=== PATIENT | male | born 1980 | race Caucasian/White ===

== ENCOUNTER 2024-10-28 17:37 | Inpatient (IN) | payer SELFPAY ==
[2024-10-28] VITALS (13 sets, daily range): BP systolic 134–161; BP diastolic 64–87; PULSE 108; RESP 20–24; TEMP 38–38.4; O2SAT 97–100
--- NOTE | ~2024-10-28 | XR_ITS ---
EXAMINATION: XR chest 2V 10/28/2024 19:31 INDICATION: Covid. Shortness of breath. Swelling. PROCEDURE: 2 view chest COMPARISON: 08/26/2014 FINDINGS: The lungs are clear. The cardiomediastinal silhouette is within normal limits. There are no pleural effusions. There is no pneumothorax suspected. IMPRESSION: 1: NO ACUTE CARDIOPULMONARY DISEASE. Reviewed, dictated and finalized at location O.
--- NOTE | ~2024-10-28 | CT_ITS ---
EXAMINATION: CT LE LT w con DATE: 10/28/2024 21:11 INDICATION: Left lower limb edema and erythema. TECHNIQUE: Computed tomography (CT) of the left lower limb was performed with 100 mL Omnipaque 350 intravenous contrast. Automated exposure control and iterative reconstruction technique were employed. The dose-length product was 2254.57 mGy-cm. COMPARISON: None FINDINGS: There is subcutaneous edema and skin thickening in the left lower limb. Alignment is normal. No fracture. No evidence of osteomyelitis. There is moderate left hip osteoarthritis. There is mild left knee osteoarthritis. No knee joint effusion. IMPRESSION: 1. Subcutaneous edema and skin thickening in the left lower limb. No abscess. Reviewed, dictated and finalized at location E.
--- NOTE | ~2024-10-28 | US_ITS ---
EXAMINATION:US venous doppler LE LT INDICATION:Left lower extremity swelling. TECHNIQUE: Multiple grayscale, color flow and Doppler images of the left lower extremity deep venous systems were obtained and reviewed. COMPARISON:No prior studies for comparison. FINDINGS: The common femoral, superficial femoral and popliteal veins demonstrate normal respiratory variation, augmentation and compressibility. Color flow is also seen within the posterior tibial, peroneal, greater saphenous and profunda veins. IMPRESSION: 1: No lower extremity deep venous thrombosis. Reviewed, dictated and finalized at location O.
--- NOTE | 2024-10-28 18:27 | ED.EXTPRO ---
HPI - Extremity Problem General Chief complaint: Extremity Problem,Nontraumatic <KAVITHA Crocker Last Filed: 10/28/24 18:42> Stated complaint: left swelling since Monday <KAVITHA Crocker Last Filed: 10/28/24 18:42> Time Seen by Provider: 10/28/24 18:27 <KAVITHA Crocker Last Filed: 10/28/24 18:42> Focused HPI: Patient is a 44 y/o male who presents to the ED with c/o LLE redness/swelling. Patient reports he works at [employer] and YANNI has been going around for the past couple of weeks. He began feeling ill on Monday with body aches, chills, cough, fever. States he laid in bed for 2 days due to not feeling well. He had been having issues with swelling in his legs recently, but since he has been ill, he has since developed worsening diffuse redness, swelling, blistering, weeping to L lower leg. Redness extending up medial leg. Patient denies hx of CHF, DVT. Does report having increased SOB, worse with exertion/laying flat. GENERAL: Ill-appearing, morbidly obese with BMI of 51.4, and in no acute distress. HEAD: Normocephalic, atraumatic. CHEST: Clear to auscultation. ?No respiratory distress. HEART: Tachycardic with regular rhythm.? MSK: Diffuse swelling throughout L lower leg, wrapped with towel, diffuse redness/yellow purulent weeping. NEURO: ?Alert and oriented x3. Patient screened in triage and initial orders placed.? ?Additional care and disposition to be based upon?diagnostic testing and treatment. <KAVITHA Crocker Last Filed: 10/28/24 18:42> Source: patient <KAVITHA Crocker Last Filed: 10/28/24 18:42> Mode of arrival: ambulatory <KAVITHA Crocker Last Filed: 10/28/24 18:42> Limitations: no limitations <KAVITHA Crocker Last Filed: 10/28/24 18:42> Related Data Allergies/Adverse reactions: Allergies Allergy/AdvReac Type Severity Reaction Status Date / Time No Known Allergies Allergy Unverified 01/02/24 10:28 <Flavia Osorio PA-C - Last Filed: 10/28/24 18:42> Review of Systems Review of Systems: All systems reviewed & are unremarkable except as noted in HPI and below <KAVITHA Mg Last Filed: 10/29/24 02:50> Exam Narrative: GENERAL: Well-appearing, obese, and in no acute distress. HEAD: Normocephalic, atraumatic. EYES: EOMI. CHEST: Clear to auscultation. No respiratory distress. No wheezes rales or rhonchi HEART: Regular rate and rhythm. No murmur heard. Normal peripheral pulses. EXTREMITIES: Normal range of motion. Edema with overlying erythema to the foot and into the lower leg with lymphangitic streaking into the thigh. Blistering noted on the lower leg laterally. Normal DP pulses SKIN: Warm, dry, no rash. NEURO: No focal deficits. Alert and oriented x3. PSYCH: Normal mood and affect <KAVITHA Mg Last Filed: 10/29/24 02:50> Course Course Emergency Course: patient updated on workup and need for admission <KAVITHA Mg Last Filed: 10/29/24 02:50> Consultations Consultation #1: Spoke with hospitalist about patient and workup who accepts admission <KAVITHA Mg Last Filed: 10/29/24 02:50> Date: 10/29/24 <KAVITHA Mg Last Filed: 10/29/24 02:50> Vital Signs Vital signs: Vital Signs Temperature 101.1 F H 10/28/24 17:52 Pulse Rate 108 H 10/28/24 17:52 Respiratory Rate 20 10/28/24 17:52 Blood Pressure 136/67 10/28/24 17:52 Pulse Oximetry 100 10/28/24 17:52 Oxygen Delivery Room Air 10/28/24 17:52 Temperature 98.2 F 10/29/24 01:12 Pulse Rate 108 H 10/28/24 19:32 Respiratory Rate 24 H 10/28/24 19:32 Blood Pressure 136/78 10/29/24 02:31 Pulse Oximetry 100 10/29/24 02:30 Oxygen Delivery Room Air 10/28/24 17:52 <Flavia Osorio PA-C - Last Filed: 10/28/24 18:42> Vital Signs Temperature 101.1 F H 10/28/24 17:52 Pulse Rate 108 H 10/28/24 17:52 Respiratory Rate 20 10/28/24 17:52 Blood Pressure 136/67 10/28/24 17:52 Pulse Oximetry 100 10/28/24 17:52 Oxygen Delivery Room Air 10/28/24 17:52 Temperature 98.2 F 10/29/24 01:12 Pulse Rate 108 H 10/28/24 19:32 Respiratory Rate 24 H 10/28/24 19:32 Blood Pressure 136/78 10/29/24 02:31 Pulse Oximetry 100 10/29/24 02:30 Oxygen Delivery Room Air 10/28/24 17:52 <KAVITHA Mg Last Filed: 10/29/24 02:50> MDM - Extremity (Nontraumatic) MDM Narrative Medical decision making narrative: MSE by ERI in triage. <KAVITHA Crocker Last Filed: 10/28/24 18:42> MSE by ERI in triage. Patient presents emergency department for redness, swelling to the left lower extremity. Patient febrile and tachycardic upon arrival. Given antipyretic with relief. Cbc without leukocytosis. CRP is elevated at 30.3. Lactic acid is not elevated. Influenza, RSV screens are negative. Left lower extremity venous Doppler without evidence of DVT. CT of the lower extremity without evidence of abscess, gas, or osteomyelitis. patient updated on workup and need for admission. Spoke with hospitalist about patient and workup who accepts admission <KAVITHA Mg Last Filed: 10/29/24 02:50> Differential Diagnosis Differential diagnosis: Likely cellulitis, deep vein thrombosis of lower extremity and other (abscess) <KAVITHA Mg Last Filed: 10/29/24 02:50> Lab Data Attestation: I reviewed the patient's lab results. <KAVITHA Mg Last Filed: 10/29/24 02:50> Result diagrams: 10/28/24 19:51 10/28/24 19:51 <Flavia Osorio PA-C - Last Filed: 10/28/24 18:42> Labs: Lab Results 10/28/24 Range/Units 19:51 WBC 10.0 (4.5-10.0) K/mm3 RBC 4.45 L (4.6-6.20) M/mm3 Hgb 13.7 L (14.0-18.0) g/dL Hct 40.3 L (42.0-52.0) % MCV 90.6 (80-100) fl MCH 30.8 (26-34) pg MCHC 34.0 (32-36) g/dl RDW 13.0 (11.5-14.5) % Plt Count 136 L (150-375) k/mm3 MPV 12.5 H (7.4-10.4) fl Immature Gran % (Auto) 0.5 (0-0.5) % Neut % (Auto) 88.6 H (45.5-73.1) % Lymph % (Auto) 6.2 L (18.3-44.2) % [place] % (Auto) 4.4 (2.6-8.5) % Eos % (Auto) 0.1 (0-4.4) % Baso % (Auto) 0.2 (0.2-1.2) % Lymph # (Auto) 0.62 L (0.9-3.2) K/mm3 [place] # (Auto) 0.4 (0.1-0.6) K/mm3 Eos # (Auto) 0.0 (0-0.3) K/mm3 Baso # (Auto) 0.0 (0.0-0.1) K/mm3 Abs Immat Gran (auto) 0.05 H (0.00-0.031) K/mm3 Absolute Neuts (auto) 8.9 H (1.3-6.7) K/mm3 Absolute Nucleated RBC 0.000 (0.0-0.012) K/mm3 Nucleated RBC % 0.0 (0.0-0.2) % PT 14.6 (11.1-14.7) Seconds INR 1.1 APTT 35.1 (22.3-36.8) Seconds Sodium 135 L (137-145) mmol/L Potassium 3.5 (3.4-5.0) mmol/L Chloride 100 (98-107) mmol/L Carbon Dioxide 23 (22-30) mmol/L Anion Gap 12 (4-12) mmol/L BUN 15 (9-20) mg/dL Creatinine 0.91 (0.7-1.3) mg/dL Estim Creat Clear Calc 128 ml/min Estimated GFR > 60 (59 - ) Glucose 99 (65-110) mg/dL Lactic Acid 1.3 (0.7-2.0) mmol/L Calcium 8.7 (8.4-10.2) mg/dL Total Bilirubin 1.3 (0.2-1.3) mg/dL AST 27 (17-59) U/L ALT 26 (6-50) U/L Alkaline Phosphatase 95 (38-126) U/L Troponin I < 0.012 (0.000-0.034) ng/mL C-Reactive Protein 30.3 H (<1.0) mg/dL NT-Pro-B Natriuret Pep < 20 (19.9-100) pg/mL Total Protein 8.1 (6.3-8.2) g/dL Albumin 4.2 (3.5-5.1) g/dL Influenza A (RT-PCR) Negative (Negative) Influenza B (RT-PCR) Negative (Negative) RSV (RT-PCR) Negative (Negative) SARS-CoV-2 RNA (RT-PCR) Negative (Negative) <Flavia Osorio PA-C - Last Filed: 10/28/24 18:42> Lab Results 10/28/24 Range/Units 19:51 WBC 10.0 (4.5-10.0) K/mm3 RBC 4.45 L (4.6-6.20) M/mm3 Hgb 13.7 L (14.0-18.0) g/dL Hct 40.3 L (42.0-52.0) % MCV 90.6 (80-100) fl MCH 30.8 (26-34) pg MCHC 34.0 (32-36) g/dl RDW 13.0 (11.5-14.5) % Plt Count 136 L (150-375) k/mm3 MPV 12.5 H (7.4-10.4) fl Immature Gran % (Auto) 0.5 (0-0.5) % Neut % (Auto) 88.6 H (45.5-73.1) % Lymph % (Auto) 6.2 L (18.3-44.2) % [place] % (Auto) 4.4 (2.6-8.5) % Eos % (Auto) 0.1 (0-4.4) % Baso % (Auto) 0.2 (0.2-1.2) % Lymph # (Auto) 0.62 L (0.9-3.2) K/mm3 [place] # (Auto) 0.4 (0.1-0.6) K/mm3 Eos # (Auto) 0.0 (0-0.3) K/mm3 Baso # (Auto) 0.0 (0.0-0.1) K/mm3 Abs Immat Gran (auto) 0.05 H (0.00-0.031) K/mm3 Absolute Neuts (auto) 8.9 H (1.3-6.7) K/mm3 Absolute Nucleated RBC 0.000 (0.0-0.012) K/mm3 Nucleated RBC % 0.0 (0.0-0.2) % PT 14.6 (11.1-14.7) Seconds INR 1.1 APTT 35.1 (22.3-36.8) Seconds Sodium 135 L (137-145) mmol/L Potassium 3.5 (3.4-5.0) mmol/L Chloride 100 (98-107) mmol/L Carbon Dioxide 23 (22-30) mmol/L Anion Gap 12 (4-12) mmol/L BUN 15 (9-20) mg/dL Creatinine 0.91 (0.7-1.3) mg/dL Estim Creat Clear Calc 128 ml/min Estimated GFR > 60 (59 - ) Glucose 99 (65-110) mg/dL Lactic Acid 1.3 (0.7-2.0) mmol/L Calcium 8.7 (8.4-10.2) mg/dL Total Bilirubin 1.3 (0.2-1.3) mg/dL AST 27 (17-59) U/L ALT 26 (6-50) U/L Alkaline Phosphatase 95 (38-126) U/L Troponin I < 0.012 (0.000-0.034) ng/mL C-Reactive Protein 30.3 H (<1.0) mg/dL NT-Pro-B Natriuret Pep < 20 (19.9-100) pg/mL Total Protein 8.1 (6.3-8.2) g/dL Albumin 4.2 (3.5-5.1) g/dL Influenza A (RT-PCR) Negative (Negative) Influenza B (RT-PCR) Negative (Negative) RSV (RT-PCR) Negative (Negative) SARS-CoV-2 RNA (RT-PCR) Negative (Negative) <KAVITHA Mg Last Filed: 10/29/24 02:50> Imaging Data Radiologist's impression: ITS Impressions Venous Doppler Study 10/28/24 19:21 IMPRESSION: 1: No lower extremity deep venous thrombosis. Chest X-Ray 10/28/24 19:35 IMPRESSION: 1: NO ACUTE CARDIOPULMONARY DISEASE. CT lower extremity left: Severe skin thickening and subcutaneous edema throughout the left lower extremity, primarily involving the calf and dorsum of the foot, consistent with severe cellulitis. Mild blistering is present along the anterior mid calf. No fluid collection or abscess. No subcutaneous air. No CT evidence of osteomyelitis <Adalgisa Earl PA-C - Last Filed: 10/29/24 02:50> Critical Care Time Critical Care Time Critical Care Time: No <KAVITHA Mg Last Filed: 10/29/24 02:50> Discharge Plan Discharge Clinical Impression: Cellulitis Qualifiers: Site of cellulitis: extremity Site of cellulitis of extremity: lower extremity Laterality: left Qualified Code(s): L03.116 - Cellulitis of left lower limb <KAVITHA Crocker Last Filed: 10/28/24 18:42> Patient Disposition: Still a Patient <KAVITHA Crocker Last Filed: 10/28/24 18:42> Condition: Stable <KAVITHA Crocker Last Filed: 10/28/24 18:42>
--- NOTE | 2024-10-28 18:31 | ECG_ITS ---
Test Date: 2024-10-28 19:44:49 Measurements Intervals [place] Rate: 101 P: 26 IA: 231 QRS: 21 QRSD: 114 T: 11 QT: 323 QTc: 420 Interpretive Statements SINUS TACHYCARDIA WITH FIRST DEGREE AV BLOCK MODERATE INTRAVENTRICULAR CONDUCTION DELAY [110+ ms QRS DURATION] ABNORMAL ECG No previous ECG available for comparison Electronically Signed On 10-29-2024 12:18:14 CDT by Raheel Lott M.D.
[2024-10-28] MEDS: ACETAMINOPHEN 500 MG TABLET 1000 MG PO (19:54)
[2024-10-28 20:24] LABS: Hematocrit 40.3 % (42.0-52.0); Hemoglobin 13.7 g/dL (14.0-18.0); Immature Granulocyte Percent A 0.5 % (0-0.5); Lymphocytes Absolute Auto 0.62 K/mm3 (0.9-3.2); Mean Corpuscular HGB Conc 34.0 g/dl (32-36); Mean Corpuscular Hemoglobin 30.8 pg (26-34); Mean Corpuscular Volume 90.6 fl (80-100); Nucleated Red Blood Cells Absolute Auto 0.000 K/mm3 (0.0-0.012); Nucleated Red Blood Cells Perc 0.0 % (0.0-0.2); Platelet Count Result 136 k/mm3 (150-375); Red Blood Count 4.45 M/mm3 (4.6-6.20); White Blood Count 10.0 K/mm3 (4.5-10.0)
[2024-10-28 20:38] LABS: INR 1.1; Partial Thromboplastin Time 35.1 Seconds (22.3-36.8); Prothrombin Time 14.6 Seconds (11.1-14.7)
[2024-10-28 20:40] LABS: Alanine Aminotransferase 26 U/L (6-50); Albumin Level 4.2 g/dL (3.5-5.1); Alkaline Phosphatase 95 U/L (38-126); Anion Gap 12 mmol/L (4-12); Aspartate Amino Transferase 27 U/L (17-59); Bilirubin,Total 1.3 mg/dL (0.2-1.3); Blood Urea Nitrogen 15 mg/dL (9-20); Calcium 8.7 mg/dL (8.4-10.2); Carbon Dioxide 23 mmol/L (22-30); Chloride 100 mmol/L (98-107); Estimated CRCL calculation 128 ml/min; Estimated Glomerular Filt Rate > 60; Glucose 99 mg/dL (65-110); Potassium 3.5 mmol/L (3.4-5.0); Sodium 135 mmol/L (137-145); Total Protein 8.1 g/dL (6.3-8.2)
[2024-10-28 20:48] LABS: NT Pro B Type Natriuretic Pept < 20 pg/mL (19.9-100); Troponin I < 0.012 ng/mL (0.000-0.034)
[2024-10-28] MEDS: VANCOMYCIN 1,250 MG/NS 250 ML 1,250 MG/250 ML BAG 166.67 MG IVPB ×2 (21:14→22:53)
[2024-10-28 21:21] LABS: Influenza A QL RT-PCR Negative (Negative); Influenza B QL RT-PCR Negative (Negative); RSV RNA, RT-PCR Negative (Negative); SARS-CoV-2 RNA PCR Negative (Negative)
[2024-10-28 22:05] LABS: CRP 30.3 mg/dL (<1.0)
[2024-10-29] VITALS (18 sets, daily range): BP systolic 110–137; BP diastolic 53–86; PULSE 89–97; RESP 16–20; TEMP 35.8–37.1; O2SAT 98–100; BMI 45.7
--- NOTE | 2024-10-29 02:50 | ADMGEN ---
This patient, Mauro Pineda, was admitted to [facility] Surg Room 310-01. Patient/family oriented to hospital policies and general routines including ID bracelet, bed and alarms, visiting hours, pain management, procedures, bathroom and other care routines, personal items, smoking policy, room service/diet, and visiting hours. Information on how to activate the Rapid Response Team has been discussed. Patient/Family are encouraged to report perceived risks to care and to ask questions if they do not understand what they are told or what they should do.
[2024-10-29] MEDS: ACETAMINOPHEN 325 MG TABLET PO ×2 (06:10→20:05)
[2024-10-29 06:25] LABS: Estimated CRCL calculation 136 ml/min; Estimated Glomerular Filt Rate > 60
[2024-10-29 07:01] LABS: Hematocrit 38.7 % (42.0-52.0); Hemoglobin 12.7 g/dL (14.0-18.0); Immature Granulocyte Percent A 0.7 % (0-0.5); Lymphocytes Absolute Auto 0.79 K/mm3 (0.9-3.2); Mean Corpuscular HGB Conc 32.8 g/dl (32-36); Mean Corpuscular Hemoglobin 30.6 pg (26-34); Mean Corpuscular Volume 93.3 fl (80-100); Nucleated Red Blood Cells Absolute Auto 0.000 K/mm3 (0.0-0.012); Nucleated Red Blood Cells Perc 0.0 % (0.0-0.2); Platelet Count Result 124 k/mm3 (150-375); Red Blood Count 4.15 M/mm3 (4.6-6.20); White Blood Count 9.6 K/mm3 (4.5-10.0)
[2024-10-29 07:19] LABS: Procalcitonin 0.6 ng/mL
[2024-10-29 07:28] LABS: Alanine Aminotransferase 22 U/L (6-50); Albumin Level 3.9 g/dL (3.5-5.1); Alkaline Phosphatase 90 U/L (38-126); Anion Gap 13 mmol/L (4-12); Aspartate Amino Transferase 25 U/L (17-59); Bilirubin,Total 1.4 mg/dL (0.2-1.3); Blood Urea Nitrogen 12 mg/dL (9-20); Calcium 8.3 mg/dL (8.4-10.2); Carbon Dioxide 18 mmol/L (22-30); Chloride 104 mmol/L (98-107); Estimated CRCL calculation 134 ml/min; Estimated Glomerular Filt Rate > 60; Glucose 85 mg/dL (65-110); Magnesium 2.4 mg/dL (1.6-2.3); Potassium 3.3 mmol/L (3.4-5.0); Sodium 135 mmol/L (137-145); Total Protein 7.6 g/dL (6.3-8.2)
--- NOTE | 2024-10-29 07:32 | P.HP_ITS ---
H&P: HPI History of Present Illness Date/Time: 10/29/24 07:32 Chief Complaint: cellulitis Narrative: 44 year old male with no significant past medical history presents to the hospital for lower extremity pain/redness/swelling to the left lower extremity. Patient states that he has had scabbing/discoloration to the bilateral lower extremities with the right typically being worse than the left since early summ er. He notes that the right pretibial discoloration and the weeping wound to the back of the right calf has been ongoing since that time. The left lower extremity was noted to be swollen since then but no significant discoloration or wounds noted. He has been using antibacterial soap and covering the lower extremities with Band-Aids overnight. He states that on Monday he started feeling unwell and was developing a subjective fever, body aches, and chills. He states that the wounds have been stable however at that time he started noticing that the left lower extremity was having worsened swelling and he was developing blisters to the front of his levin. The left leg than became increasingly red and painful with significantly increased weeping. Patient states he thinks he might have cut his leg when scratching himself with his foot. He also notes that he had a pimple to his left knee that had recently formed. He denies a possibility of a cat scratch. Patient is also endorsing increased shortness of breath when lying flat. He states that this has been ongoing since 2020 when he was previously diagnosed with COVID. He states whenever he lies flat he developed coughing and cannot catch his breath. He denies any productive cough. He states that this has been his baseline since 2020 and denies recent worsening. Code status was discussed with patient and he wishes to remain a full code. ED workup: Febrile (temp max 101.1) on arrival to ER with tachycardia. CBC with WBC 9.6, H/H 12.7/38.7, PLT 124. PT/INR and PTT WNL. CBC with Na 135, K 3.3, Cl 104, CO2 18, BUN/Cr 12/0.80. Glucose 85. Lactic WNL. Calcium 8.3. Mag 2.4. Tot Bili 1.4. LFTs WNL. CRP and Procal elevated at 33.8 andl 0.6 respectively. Viral panel negative. Doppler negative. Chest XR: No acute cardiopulmonary process Lower extremity CT: preliminary read - severe skin thickening and subcutaneous edema throughout the left lower extremity, primarily involving the calf and dorsum of the foot, consistent with severe cellulitis. Mild blistering present along the naterior mid calf. No fluid collection or abscess. No subcutaneous air. No evidence of osteomyelitis. Review of Systems Review of Systems: All systems reviewed & are unremarkable except as noted in HPI and below PMFSH Social History Social History (Updated 10/29/24 @ 15:44 by Marva Garcia PA-C) Social History: Lives at home with and her cousin. Has 3 cats. Smoking status: Never smoker Second hand tobacco smoke exposure: Yes Alcohol intake: current Drinks per week: 2 Substance use: never Lack of Transportation: No Lack of Food: Never True Current Housing: I Have Housing Concerned About Future Housing: No Difficulty Paying Gas/Electric Bills: No Difficulty Paying for Meds: No Currently Unemployed: No Education: High School Diploma/GED Difficulty w/ Childcare or Family Care: No Spiritual care concerns: No Meds Home Medications and Allergies Home Medications ?Medication ?Instructions ?Recorded ?Confirmed ?Type No Home Medications 10/29/24 10/29/24 H istory Allergies Allergy/AdvReac Type Severity Reaction Status Date / Time No Known Allergies Allergy Unverified 01/02/24 10:28 Vital Signs Vital Signs - 24 hr 10/28/24 17:52 10/28/24 19:32 10/28/24 20:11 Temperature 101.1 F H 100.4 F H Pulse Rate 108 H 108 H Respiratory Rate 20 24 H Blood Pressure 136/67 147/75 H Pulse Oximetry 100 100 100 Oxygen Delivery Room Air 10/28/24 20:18 10/28/24 20:31 10/28/24 20:46 Temperature Pulse Rate Respiratory Rate Blood Pressure 161/87 H 156/82 H Pulse Oximetry 100 Oxygen Delivery 10/28/24 21:12 10/28/24 21:13 10/28/24 21:15 Temperature Pulse Rate Respiratory Rate Blood Pressure 149/71 H Pulse Oximetry 97 98 97 Oxygen Delivery 10/28/24 21:16 10/28/24 21:56 10/28/24 22:00 Temperature Pulse Rate Respiratory Rate Blood Pressure 134/64 Pulse Oximetry 98 98 97 Oxygen Delivery 10/28/24 22:17 10/29/24 01:11 10/29/24 01:12 Temperature 98.2 F Pulse Rate Respiratory Rate Blood Pressure 110/60 Pulse Oximetry 98 100 100 Oxygen Delivery 10/29/24 01:13 10/29/24 01:15 10/29/24 01:16 Temperature Pulse Rate Respiratory Rate Blood Pressure 116/68 Pulse Oximetry 100 100 100 Oxygen Delivery 10/29/24 01:30 10/29/24 01:31 10/29/24 01:32 Temperature Pulse Rate Respiratory Rate Blood Pressure 137/86 Pulse Oximetry 100 100 100 Oxygen Delivery 10/29/24 02:13 10/29/24 02:15 10/29/24 02:16 Temperature Pulse Rate Respiratory Rate Blood Pressure 129/70 Pulse Oximetry 100 100 100 Oxygen Delivery 10/29/24 02:30 10/29/24 02:31 10/29/24 02:49 Temperature Pulse Rate Respiratory Rate Blood Pressure 136/78 Pulse Oximetry 100 Oxygen Delivery Room Air 10/29/24 03:21 Temperature 98.1 F Pulse Rate 93 Respiratory Rate 20 Blood Pressure 122/79 Pulse Oximetry 100 Oxygen Delivery Exam Narrative: AF HR 91 RR 20 Spo2 98 BP 127/60 General: male in no acute respiratory distress who is nontoxic appearing, sitting on side of bed HEENT: Normocephalic. Atraumatic. Extraocular movement intact. Sclera clear and anicteric. No facial asymmetry. Chest: Lungs are clear to auscultation bilaterally. No wheezes or crackles. CV: Heart was regular rate and rhythm. S1/S2. No murmurs, gallops, or rubs. Abd: Abdomen was soft. Nontender. Nondistended. Positive bowel sounds. Ext: Left lower extremity with bright redness, warmth, and clear weeping drainage extending up to the knee and extending to the mid back of thigh. 3 blisters noted to the pretibial region of the left leg. Right lower extremity with pretibial discoloration and weeping to the calf. DP pulses bilaterally intact. Neuro: Patient is alert and oriented x4. Speech is clear. Psych: Normal mood and affect. Patient is pleasant and cooperative. H&P: Results Labs Labs: Short CBC 10/28/24 10/29/24 Range/Units 19:51 05:30 WBC 10.0 9.6 (4.5-10.0) K/mm3 Hgb 13.7 L 12.7 L (14.0-18.0) g/dL Hct 40.3 L 38.7 L (42.0-52.0) % Plt Count 136 L 124 L (150-375) k/mm3 BMP 10/28/24 10/29/24 10/29/24 19:51 05:30 05:30 Sodium 135 L 135 L Potassium 3.5 3.3 L Chloride 100 104 Carbon Dioxide 23 18 L BUN 15 12 Creatinine 0.91 0.79 0.80 Glucose 99 85 Calcium 8.7 8.3 L Cardiac Enzymes 10/28/24 Range/Units 19:51 Troponin I < 0.012 (0.000-0.034) ng/mL Liver Function 10/28/24 10/29/24 Range/Units 19:51 05:30 Total Bilirubin 1.3 1.4 H (0.2-1.3) mg/dL AST 27 25 (17-59) U/L ALT 26 22 (6-50) U/L Alkaline Phosphatase 95 90 (38-126) U/L Albumin 4.2 3.9 (3.5-5.1) g/dL Assessment and Plan Assessment and plan (1) Sepsis: Code(s): A41.9 - Sepsis, unspecified organism Status: Acute Assessment and Plan: Meets SIRS criteria: tachycardia and febrile (t max 101.1) Patient did not receive sepsis fluids on admission, however will continue to hold as at this time patients is afebrile with stable vitals and without leukocytosis - lactic acid: 1.3 - suspected source: cellulitis - blood cultures drawn on 10/28: pending - denies UTI symptoms - Chest XR: No acute cardiopulmonary process - Lower extremity CT: Subcutaneous edema and skin thickening in the left lower limb. No abscess. - See plan for cellulitis below (2) Cellulitis: Qualifiers: Laterality: left Site of cellulitis: extremity Site of cellulitis of extremity: lower extremity Qualified Code(s): L03.116 - Cellulitis of left lower limb Code(s): L03.90 - Cellulitis, unspecified Status: Acute Assessment and Plan: - Cellulitic area marked with sharpy by RN to assess for further spreading - Doppler negative. - Lower extremity CT: Subcutaneous edema and skin thickening in the left lower limb. No abscess. - Antibiotic: Vancomycin started on 10/28 - Likely component of vascular disease contributing - Monitor vital signs, I&Os, neuro status and patient is a fall risk - Monitor serum electrolytes, CBC, cultures, WBC and temp curve (3) Shortness of breath: Code(s): R06.02 - Shortness of breath Status: Acute Assessment and Plan: Patient endorses chronic shortness of breath since previously having covid in 2020 He endorses a cough and inability to catch breath when lying down Denies history of CHF. BNP unremarkable. Viral panel negative Chest XR unremarkable Possibly related to obesity hypoventilation syndrome, apnea link ordered to assess nocturnal O2 Remains on room air and currently denying shortness of breath Quality VTE Prophylaxis VTE prophylaxis: pharmacologic ordered Hospitalist MIPS Advance Care Plan I have confirmed that the patient's Advanced Care Plan is present, code status is documented, or surrogate decision maker is listed in patient medical record.: Yes Medication Reconciliation I have utilized all available resources to obtain, update and review the patients current medications (includes all prescriptions, OTC, herbals, cannabis, and nutritional supplements).: Yes
[2024-10-29 07:41] LABS: CRP 33.8 mg/dL (<1.0)
[2024-10-29] MEDS: VANCOMYCIN 1,500 MG/NS 500 ML 1,500 MG/500 ML BAG 250 MG IVPB ×2 (09:12→20:06)
[2024-10-29] MEDS: HYDROcodone/acetaminophen (*CRX) 5-325 MG TABLET 1 TAB PO (21:36)
[2024-10-30 05:44] VITALS: BP 108/71; PULSE 87; RESP 14; TEMP 36.9; O2SAT 99
[2024-10-30] MEDS: ENOXAPARIN 40 MG/0.4 ML SYRINGE SUB-Q (08:56)
[2024-10-30] MEDS: HYDROcodone/acetaminophen (*CRX) 5-325 MG TABLET 1 TAB PO ×2 (09:05→20:05)
[2024-10-30 09:13] LABS: Hematocrit 35.7 % (42.0-52.0); Hemoglobin 12.0 g/dL (14.0-18.0); Mean Corpuscular HGB Conc 33.6 g/dl (32-36); Mean Corpuscular Hemoglobin 30.3 pg (26-34); Mean Corpuscular Volume 90.2 fl (80-100); Platelet Count Result 150 k/mm3 (150-375); Red Blood Count 3.96 M/mm3 (4.6-6.20); White Blood Count 7.7 K/mm3 (4.5-10.0)
[2024-10-30 09:38] LABS: Alanine Aminotransferase 30 U/L (6-50); Albumin Level 3.6 g/dL (3.5-5.1); Alkaline Phosphatase 113 U/L (38-126); Anion Gap 5 mmol/L (4-12); Aspartate Amino Transferase 27 U/L (17-59); Bilirubin,Total 0.8 mg/dL (0.2-1.3); Blood Urea Nitrogen 10 mg/dL (9-20); Calcium 8.4 mg/dL (8.4-10.2); Carbon Dioxide 27 mmol/L (22-30); Chloride 101 mmol/L (98-107); Estimated CRCL calculation 138 ml/min; Estimated Glomerular Filt Rate > 60; Glucose 103 mg/dL (65-110); Potassium 3.4 mmol/L (3.4-5.0); Sodium 133 mmol/L (137-145); Total Protein 7.1 g/dL (6.3-8.2)
[2024-10-30] MEDS: VANCOMYCIN 2,000 MG/NS 500 ML 2,000 MG/500 ML BAG 250 MG IVPB ×2 (10:13→17:00)
[2024-10-30 14:00] VITALS: BP 125/63; PULSE 81; RESP 18; TEMP 36.4; O2SAT 100
--- NOTE | 2024-10-30 15:44 | PM.IMPN ---
Progress Note: A&P Assessment and Plan (1) Sepsis: Code(s): A41.9 - Sepsis, unspecified organism Status: Acute Assessment and Plan: Meets SIRS criteria: tachycardia and febrile (t max 101.1) Patient did not receive sepsis fluids on admission, however will continue to hold as at this time patients is afebrile with stable vitals and without leukocytosis - lactic acid: 1.3 - suspected source: cellulitis - blood cultures drawn on 10/28: pending - denies UTI symptoms - Chest XR: No acute cardiopulmonary process - Lower extremity CT: Subcutaneous edema and skin thickening in the left lower limb. No abscess. - See plan for cellulitis below (2) Cellulitis: Qualifiers: Laterality: left Site of cellulitis: extremity Site of cellulitis of extremity: lower extremity Qualified Code(s): L03.116 - Cellulitis of left lower limb Code(s): L03.90 - Cellulitis, unspecified Status: Acute Assessment and Plan: - Cellulitic area marked with sharpy by RN to assess for further spreading - Doppler negative. - Lower extremity CT: Subcutaneous edema and skin thickening in the left lower limb. No abscess. - Antibiotic: Vancomycin started on 10/28 - Likely component of vascular disease contributing - Monitor vital signs, I&Os, neuro status and patient is a fall risk - Monitor serum electrolytes, CBC, cultures, WBC and temp curve (3) Shortness of breath: Code(s): R06.02 - Shortness of breath Status: Acute Assessment and Plan: Patient endorses chronic shortness of breath since previously having covid in 2020 He endorses a cough and inability to catch breath when lying down Denies history of CHF. BNP unremarkable. Viral panel negative Chest XR unremarkable Possibly related to obesity hypoventilation syndrome, apnea link ordered to assess nocturnal O2 Remains on room air and currently denying shortness of breath Time Spent With Patient Time with patient: 25 - 35 minutes Subjective Date/time seen: 10/30/24 15:44 Interval history: 44 year old male with no significant past medical history presents to the hospital for lower extremity pain/redness/swelling to the left lower extremity. Patient states that he has had scabbing/discoloration to the bilateral lower extremities with the right typically being worse than the left since early summer. He notes that the right pretibial discoloration and the weeping wound to the back of the right calf has been ongoing since that time. The left lower extremity was noted to be swollen since then but no significant discoloration or wounds noted. He has been using antibacterial soap and covering the lower extremities with Band-Aids overnight. He states that on Monday he started feeling unwell and was developing a subjective fever, body aches, and chills. He states that the wounds have been stable however at that time he started noticing that the left lower extremity was having worsened swelling and he was developing blisters to the front of his levin. The left leg than became increasingly red and painful with significantly increased weeping. Patient states he thinks he might have cut his leg when scratching himself with his foot. He also notes that he had a pimple to his left knee that had recently formed. He denies a possibility of a cat scratch. Patient is also endorsing increased shortness of breath when lying flat. He states that this has been ongoing since 2020 when he was previously diagnosed with COVID. He states whenever he lies flat he developed coughing and cannot catch his breath. He denies any productive cough. He states that this has been his baseline since 2020 and denies recent worsening. Code status was discussed with patient and he wishes to remain a full code. ED workup: Febrile (temp max 101.1) on arrival to ER with tachycardia. CBC with WBC 9.6, H/H 12.7/38.7, PLT 124. PT/INR and PTT WNL. CBC with Na 135, K 3.3, Cl 104, CO2 18, BUN/Cr 12/0.80. Glucose 85. Lactic WNL. Calcium 8.3. Mag 2.4. Tot Bili 1.4. LFTs WNL. CRP and Procal elevated at 33.8 andl 0.6 respectively. Viral panel negative. Doppler negative. Chest XR: No acute cardiopulmonary process Lower extremity CT: preliminary read - severe skin thickening and subcutaneous edema throughout the left lower extremity, primarily involving the calf and dorsum of the foot, consistent with severe cellulitis. Mild blistering present along the naterior mid calf. No fluid collection or abscess. No subcutaneous air. No evidence of osteomyelitis. assuming care. pt is seen and examined. on iv antibio. remains on ra. cultures pending. Review of Systems Review of Systems: All systems reviewed & are unremarkable except as noted in HPI and below Exam Narrative: General: male in no acute respiratory distress who is nontoxic appearing, sitting on side of bed HEENT: Normocephalic. Atraumatic. Extraocular movement intact. Sclera clear and anicteric. No facial asymmetry. Chest: Lungs are clear to auscultation bilaterally. No wheezes or crackles. CV: Heart was regular rate and rhythm. S1/S2. No murmurs, gallops, or rubs. Abd: Abdomen was soft. Nontender. Nondistended. Positive bowel sounds. Ext: Left lower extremity with bright redness, warmth, and clear weeping drainage extending up to the knee and extending to the mid back of thigh. 3 blisters noted to the pretibial region of the left leg. Right lower extremity with pretibial discoloration and weeping to the calf. DP pulses bilaterally intact. Neuro: Patient is alert and oriented x4. Speech is clear. Psych: Normal mood and affect. Patient is pleasant and cooperative. Objective Data Vital Signs Vital Signs: Vital Signs - 24 hr 10/29/24 20:06 10/29/24 21:14 10/29/24 22:50 Temperature 98.8 F Pulse Rate 89 Respiratory Rate 16 Blood Pressure 113/53 L Pulse Oximetry 100 98 Oxygen Delivery Room Air Room Air 10/30/24 05:44 10/30/24 08:00 10/30/24 14:00 Temperature 98.4 F 97.5 F L Pulse Rate 87 81 Respiratory Rate 14 18 Blood Pressure 108/71 125/63 Pulse Oximetry 99 100 Oxygen Delivery Room Air Intake/Output Intake/Output: Intake & Output 10/27/24 10/28/24 10/29/24 10/30/24 23:59 23:59 23:59 23:59 Intake Total 250 2090 2120 Balance 250 2090 2120 Meds/Results Medications: Active Medications Generic Name Dose Route Start Last Admin Trade Name Freq PRN Reason Stop Dose Admin Acetaminophen 325 mg 10/29/24 05:50 10/29/24 20:05 Acetaminophen 325 Mg Tablet PO 325 mg Q6H PRN Administration Mild Pain (1-3) or Fever Hydrocodone Bitart/Acetaminophen 1 tab 10/29/24 21:18 10/30/24 09:05 Hydrocodone/Acetaminophen (*Crx) 5-325 Mg Tablet PO 1 tab Q6H PRN Administration Pain Rated 4-6 Enoxaparin Sodium 40 mg 10/30/24 09:00 10/30/24 08:56 Enoxaparin 40 Mg/0.4 Ml Syringe SUB-Q 40 mg DAILY DEQUAN Administration Vancomycin HCl 2,000 mg in 500 mls @ 250 mls/hr 10/30/24 10:00 10/30/24 12:20 Vancomycin 2,000 Mg/Ns 500 Ml IVPB Infused Q8H DEQUAN Infusion Morphine Sulfate 2 mg 10/30/24 08:10 Morphine Sulfate (*Crx) 4 Mg/Ml Inj IV PUSH Q4H PRN Pain Rated 7-10 Naloxone HCl 0.1 mg 10/29/24 21:18 Naloxone Hcl 0.4 Mg/Ml Vial IV PUSH Q5MIN PRN Sedation Radiology Results: ITS Impressions Venous Doppler Study 10/28/24 19:21 IMPRESSION: 1: No lower extremity deep venous thrombosis. Chest X-Ray 10/28/24 19:35 IMPRESSION: 1: NO ACUTE CARDIOPULMONARY DISEASE. Lower Extremity CT 10/29/24 09:07 IMPRESSION: 1. Subcutaneous edema and skin thickening in the left lower limb. No abscess. Labs Labs: Laboratory Results - last 24 hr 10/30/24 08:46 WBC 7.7 RBC 3.96 L Hgb 12.0 L Hct 35.7 L MCV 90.2 MCH 30.3 MCHC 33.6 RDW 13.0 Plt Count 150 MPV 11.8 H Sodium 133 L Potassium 3.4 Chloride 101 Carbon Dioxide 27 Anion Gap 5 BUN 10 Creatinine 0.78 Estim Creat Clear Calc 138 Estimated GFR > 60 Glucose 103 Calcium 8.4 Total Bilirubin 0.8 AST 27 ALT 30 Alkaline Phosphatase 113 Total Protein 7.1 Albumin 3.6 Vancomycin Trough 6.8 L Quality VTE Prophylaxis VTE prophylaxis: pharmacologic ordered
[2024-10-30 21:47] VITALS: BP 140/80; PULSE 86; RESP 18; TEMP 36.9; O2SAT 100
[2024-10-31] MEDS: VANCOMYCIN 2,000 MG/NS 500 ML 2,000 MG/500 ML BAG 250 MG IVPB ×3 (01:25→17:05)
[2024-10-31 06:00] VITALS: BP 126/59; PULSE 85; RESP 18; TEMP 37.5; O2SAT 99
[2024-10-31] MEDS: ENOXAPARIN 40 MG/0.4 ML SYRINGE SUB-Q (08:52)
[2024-10-31] MEDS: HYDROcodone/acetaminophen (*CRX) 5-325 MG TABLET 1 TAB PO ×2 (08:57→21:02)
[2024-10-31 09:01] LABS: Hematocrit 36.1 % (42.0-52.0); Hemoglobin 12.2 g/dL (14.0-18.0); Mean Corpuscular HGB Conc 33.8 g/dl (32-36); Mean Corpuscular Hemoglobin 30.4 pg (26-34); Mean Corpuscular Volume 90.0 fl (80-100); Platelet Count Result 165 k/mm3 (150-375); Red Blood Count 4.01 M/mm3 (4.6-6.20); White Blood Count 7.0 K/mm3 (4.5-10.0)
[2024-10-31 09:24] LABS: Alanine Aminotransferase 33 U/L (6-50); Albumin Level 3.6 g/dL (3.5-5.1); Alkaline Phosphatase 104 U/L (38-126); Anion Gap 7 mmol/L (4-12); Aspartate Amino Transferase 26 U/L (17-59); Bilirubin,Total 0.9 mg/dL (0.2-1.3); Blood Urea Nitrogen 10 mg/dL (9-20); Calcium 8.4 mg/dL (8.4-10.2); Carbon Dioxide 27 mmol/L (22-30); Chloride 100 mmol/L (98-107); Estimated CRCL calculation 143 ml/min; Estimated Glomerular Filt Rate > 60; Glucose 107 mg/dL (65-110); Potassium 3.7 mmol/L (3.4-5.0); Sodium 134 mmol/L (137-145); Total Protein 7.0 g/dL (6.3-8.2)
--- NOTE | 2024-10-31 10:40 | P.PNIM_ITS ---
Progress Note: A&P Assessment and Plan (1) Sepsis: Code(s): A41.9 - Sepsis, unspecified organism Status: Acute Assessment and Plan: Meets SIRS criteria: tachycardia and febrile (t max 101.1) Patient did not receive sepsis fluids on admission, however will continue to hold as at this time patients is afebrile with stable vitals and without leukocytosis - lactic acid: 1.3 - suspected source: cellulitis - blood cultures drawn on 10/28: pending - denies UTI symptoms - Chest XR: No acute cardiopulmonary process - Lower extremity CT: Subcutaneous edema and skin thickening in the left lower limb. No abscess. - See plan for cellulitis below (2) Cellulitis: Qualifiers: Laterality: left Site of cellulitis: extremity Site of cellulitis of extremity: lower extremity Qualified Code(s): L03.116 - Cellulitis of left lower limb Code(s): L03.90 - Cellulitis, unspecified Status: Acute Assessment and Plan: - Cellulitic area marked with sharpy by RN to assess for further spreading - Doppler negative. - Lower extremity CT: Subcutaneous edema and skin thickening in the left lower limb. No abscess. - Antibiotic: Vancomycin started on 10/28 - Likely component of vascular disease contributing - Monitor vital signs, I&Os, neuro status and patient is a fall risk - Monitor serum electrolytes, CBC, cultures, WBC and temp curve (3) Shortness of breath: Code(s): R06.02 - Shortness of breath Status: Acute Assessment and Plan: Patient endorses chronic shortness of breath since previously having covid in 2020 He endorses a cough and inability to catch breath when lying down Denies history of CHF. BNP unremarkable. Viral panel negative Chest XR unremarkable Possibly related to obesity hypoventilation syndrome, apnea link ordered to assess nocturnal O2 Remains on room air and currently denying shortness of breath encouraged to ambulate, elevate leg, use acewrap/compression stocking Time Spent With Patient Time with patient: 25 - 35 minutes Subjective Date/time seen: 10/31/24 10:40 Interval history: 44 year old male with no significant past medical history presents to the hospital for lower extremity pain/redness/swelling to the left lower extremity. Patient states that he has had scabbing/discoloration to the bilateral lower extremities with the right typically being worse than the left since early summer. He notes that the right pretibial discoloration and the weeping wound to the back of the right calf has been ongoing since that time. The left lower extremity was noted to be swollen since then but no significant discoloration or wounds noted. He has been using antibacterial soap and covering the lower extremities with Band-Aids overnight. He states that on Monday he started feeling unwell and was developing a subjective fever, body aches, and chills. He states that the wounds have been stable however at that time he started noticing that the left lower extremity was having worsened swelling and he was d eveloping blisters to the front of his levin. The left leg than became increasingly red and painful with significantly increased weeping. Patient states he thinks he might have cut his leg when scratching himself with his foot. He also notes that he had a pimple to his left knee that had recently formed. He denies a possibility of a cat scratch. Patient is also endorsing increased shortness of breath when lying flat. He states that this has been ongoing since 2020 when he was previously diagnosed with COVID. He states whenever he lies flat he developed coughing and cannot catch his breath. He denies any productive cough. He states that this has been his baseline since 2020 and denies recent worsening. Code status was discussed with patient and he wishes to remain a full code. ED workup: Febrile (temp max 101.1) on arrival to ER with tachycardia. CBC with WBC 9.6, H/H 12.7/38.7, PLT 124. PT/INR and PTT WNL. CBC with Na 135, K 3.3, Cl 104, CO2 18, BUN/Cr 12/0.80. Glucose 85. Lactic WNL. Calcium 8.3. Mag 2.4. Tot Bili 1.4. LFTs WNL. CRP and Procal elevated at 33.8 andl 0.6 respectively. Viral panel negative. Doppler negative. Chest XR: No acute cardiopulmonary process Lower extremity CT: preliminary read - severe skin thickening and subcutaneous edema throughout the left lower extremity, primarily involving the calf and dorsum of the foot, consistent with severe cellulitis. Mild blistering present along the naterior mid calf. No fluid collection or abscess. No subcutaneous air. No evidence of osteomyelitis. assuming care. pt is seen and examined. on iv antibio. remains on ra. cultures pending. 10/31 erythema is slightly imptioved still swollen and weeping. Review of Systems Review of Systems: All systems reviewed & are unremarkable except as noted in HPI and below Exam Narrative: General: male in no acute respiratory distress who is nontoxic appearing, resting in bed HEENT: Normocephalic. Atraumatic. Extraocular movement intact. Sclera clear and anicteric. No facial asymmetry. Chest: Lungs are clear to auscultation bilaterally. No wheezes or crackles. CV: Heart was regular rate and rhythm. S1/S2. No murmurs, gallops, or rubs. Abd: Abdomen was soft. Nontender. Nondistended. Positive bowel sounds. Ext: Left lower extremity with bright redness, warmth, and clear weeping drainage extending up to the knee and extending to the mid back of thigh. 3 blisters noted to the pretibial region of the left leg. Right lower extremity with pretibial discoloration and weeping to the calf. DP pulses bilaterally intact. Neuro: Patient is alert and oriented x4. Speech is clear. Psych: Normal mood and affect. Patient is pleasant and cooperative. Const: General: comfortable Objective Data Vital Signs Vital Signs: Vital Signs - 24 hr 10/30/24 14:00 10/30/24 20:05 10/30/24 21:47 Temperature 97.5 F L 98.5 F Pulse Rate 81 86 Respiratory Rate 18 18 Blood Pressure 125/63 140/80 Pulse Oximetry 100 100 Oxygen Delivery Room Air 10/31/24 06:00 10/31/24 08:00 Temperature 99.5 F Pulse Rate 85 Respiratory Rate 18 Blood Pressure 126/59 L Pulse Oximetry 99 Oxygen Delivery Room Air Intake/Output Intake/Output: Intake & Output 10/28/24 10/29/24 10/30/24 10/31/24 23:59 23:59 23:59 23:59 Intake Total 250 2090 4320 1170 Balance 250 2090 4320 1170 Meds/Results Medications: Active Medications Generic Name Dose Route Start Last Admin Trade Name Freq PRN Reason Stop Dose Admin Acetaminophen 325 mg 10/29/24 05:50 10/29/24 20:05 Acetaminophen 325 Mg Tablet PO 325 mg Q6H PRN Administration Mild Pain (1-3) or Fever Hydrocodone Bitart/Acetaminophen 1 tab 10/29/24 21:18 10/31/24 08:57 Hydrocodone/Acetaminophen (*Crx) 5-325 Mg Tablet PO 1 tab Q6H PRN Administration Pain Rated 4-6 Enoxaparin Sodium 40 mg 10/30/24 09:00 10/31/24 08:52 Enoxaparin 40 Mg/0.4 Ml Syringe SUB-Q 40 mg DAILY DEQUAN Administration Vancomycin HCl 2,000 mg in 500 mls @ 250 mls/hr 10/30/24 10:00 10/31/24 10:22 Vancomycin 2,000 Mg/Ns 500 Ml IVPB 250 mls/hr Q8H DEQUAN Administration Morphine Sulfate 2 mg 10/30/24 08:10 Morphine Sulfate (*Crx) 4 Mg/Ml Inj IV PUSH Q4H PRN Pain Rated 7-10 Naloxone HCl 0.1 mg 10/29/24 21:18 Naloxone Hcl 0.4 Mg/Ml Vial IV PUSH Q5MIN PRN Sedation Radiology Results: ITS Impressions Venous Doppler Study 10/28/24 19:21 IMPRESSION: 1: No lower extremity deep venous thrombosis. Chest X-Ray 10/28/24 19:35 IMPRESSION: 1: NO ACUTE CARDIOPULMONARY DISEASE. Lower Extremity CT 10/29/24 09:07 IMPRESSION: 1. Subcutaneous edema and skin thickening in the left lower limb. No abscess. Labs Labs: Laboratory Results - last 24 hr 10/31/24 08:49 WBC 7.0 RBC 4.01 L Hgb 12.2 L Hct 36.1 L MCV 90.0 MCH 30.4 MCHC 33.8 RDW 12.9 Plt Count 165 MPV 11.5 H Sodium 134 L Potassium 3.7 Chloride 100 Carbon Dioxide 27 Anion Gap 7 BUN 10 Creatinine 0.75 Estim Creat Clear Calc 143 Estimated GFR > 60 Glucose 107 Calcium 8.4 Total Bilirubin 0.9 AST 26 ALT 33 Alkaline Phosphatase 104 Total Protein 7.0 Albumin 3.6 Vancomycin Trough 13.4 Quality VTE Prophylaxis VTE prophylaxis: pharmacologic ordered
[2024-10-31 14:00] VITALS: BP 127/73; PULSE 97; RESP 17; TEMP 36.3; O2SAT 100
[2024-10-31 21:02] VITALS: PULSE 87; RESP 18; O2SAT 100
[2024-10-31 21:05] VITALS: BP 125/61; PULSE 87; RESP 18; TEMP 36.6; O2SAT 100
[2024-11-01] MEDS: VANCOMYCIN 2,000 MG/NS 500 ML 2,000 MG/500 ML BAG 250 MG IVPB (01:31)
[2024-11-01 05:24] VITALS: BP 135/68; PULSE 86; RESP 16; TEMP 37; O2SAT 98
[2024-11-01 09:09] LABS: Hematocrit 34.8 % (42.0-52.0); Hemoglobin 11.6 g/dL (14.0-18.0); Mean Corpuscular HGB Conc 33.3 g/dl (32-36); Mean Corpuscular Hemoglobin 30.2 pg (26-34); Mean Corpuscular Volume 90.6 fl (80-100); Platelet Count Result 181 k/mm3 (150-375); Red Blood Count 3.84 M/mm3 (4.6-6.20); White Blood Count 5.7 K/mm3 (4.5-10.0)
[2024-11-01 09:31] LABS: Alanine Aminotransferase 31 U/L (6-50); Albumin Level 3.6 g/dL (3.5-5.1); Alkaline Phosphatase 94 U/L (38-126); Anion Gap 7 mmol/L (4-12); Aspartate Amino Transferase 23 U/L (17-59); Bilirubin,Total 0.8 mg/dL (0.2-1.3); Blood Urea Nitrogen 10 mg/dL (9-20); Calcium 8.3 mg/dL (8.4-10.2); Carbon Dioxide 27 mmol/L (22-30); Chloride 102 mmol/L (98-107); Estimated CRCL calculation 144 ml/min; Estimated Glomerular Filt Rate > 60; Glucose 139 mg/dL (65-110); Potassium 3.9 mmol/L (3.4-5.0); Sodium 136 mmol/L (137-145); Total Protein 6.8 g/dL (6.3-8.2)
[2024-11-01] MEDS: ENOXAPARIN 40 MG/0.4 ML SYRINGE SUB-Q (10:01)
[2024-11-01] MEDS: SULFAMETHOXAZOLE/TRIMETHOPRIM 800/160 MG DS TABLET 2 TAB PO ×2 (10:01→20:30)
[2024-11-01] MEDS: HYDROcodone/acetaminophen (*CRX) 5-325 MG TABLET 1 TAB PO ×2 (10:10→20:37)
[2024-11-01 14:00] VITALS: BP 123/59; PULSE 85; RESP 18; TEMP 36.9; O2SAT 100
--- NOTE | 2024-11-01 15:54 | PM.IMPN ---
Progress Note: A&P Assessment and Plan (1) Sepsis: Code(s): A41.9 - Sepsis, unspecified organism Status: Acute Assessment and Plan: Meets SIRS criteria: tachycardia and febrile (t max 101.1) Patient did not receive sepsis fluids on admission, however will continue to hold as at this time patients is afebrile with stable vitals and without leukocytosis - lactic acid: 1.3 - suspected source: cellulitis - blood cultures drawn on 10/28: pending - denies UTI symptoms - Chest XR: No acute cardiopulmonary process - Lower extremity CT: Subcutaneous edema and skin thickening in the left lower limb. No abscess. - See plan for cellulitis below (2) Cellulitis: Qualifiers: Laterality: left Site of cellulitis: extremity Site of cellulitis of extremity: lower extremity Qualified Code(s): L03.116 - Cellulitis of left lower limb Code(s): L03.90 - Cellulitis, unspecified Status: Acute Assessment and Plan: - Cellulitic area marked with sharpy by RN to assess for further spreading - Doppler negative. - Lower extremity CT: Subcutaneous edema and skin thickening in the left lower limb. No abscess. - Antibiotic: Vancomycin started on 10/28 - Likely component of vascular disease contributing - Monitor vital signs, I&Os, neuro status and patient is a fall risk - Monitor serum electrolytes, CBC, cultures, WBC and temp curve stop vanc and switch to bactrum- anticipate discharge in the next couple of days (3) Shortness of breath: Code(s): R06.02 - Shortness of breath Status: Acute Assessment and Plan: Patient endorses chronic shortness of breath since previously having covid in 2020 He endorses a cough and inability to catch breath when lying down Denies history of CHF. BNP unremarkable. Viral panel negative Chest XR unremarkable Possibly related to obesity hypoventilation syndrome, apnea link ordered to assess nocturnal O2 Remains on room air and currently denying shortness of breath encouraged to ambulate, elevate leg, use acewrap/compression stocking Time Spent With Patient Time with patient: 25 - 35 minutes Subjective Date/time seen: 11/01/24 15:54 Interval history: 44 year old male with no significant past medical history presents to the hospital for lower extremity pain/redness/swelling to the left lower extremity. Patient states that he has had scabbing/discoloration to the bilateral lower extremities with the right typically being worse than the left since early summer. He notes that the right pretibial discoloration and the weeping wound to the back of the right calf has been ongoing since that time. The left lower extremity was noted to be swollen since then but no significant discoloration or wounds noted. He has been using antibacterial soap and covering the lower extremities with Band-Aids overnight. He states that on Monday he started feeling unwell and was developing a subjective fever, body aches, and chills. He states that the wounds have been stable however at that time he started noticing that the left lower extremity was having worsened swelling and he was developing blisters to the front of his leivn. The left leg than became increasingly red and painful with significantly increased weeping. Patient states he thinks he might have cut his leg when scratching himself with his foot. He also notes that he had a pimple to his left knee that had recently formed. He denies a possibility of a cat scratch. Patient is also endorsing increased shortness of breath when lying flat. He states that this has been ongoing since 2020 when he was previously diagnosed with COVID. He states whenever he lies flat he developed coughing and cannot catch his breath. He denies any productive cough. He states that this has been his baseline since 2020 and denies recent worsening. Code status was discussed with patient and he wishes to remain a full code. ED workup: Febrile (temp max 101.1) on arrival to ER with tachycardia. CBC with WBC 9.6, H/H 12.7/38.7, PLT 124. PT/INR and PTT WNL. CBC with Na 135, K 3.3, Cl 104, CO2 18, BUN/Cr 12/0.80. Glucose 85. Lactic WNL. Calcium 8.3. Mag 2.4. Tot Bili 1.4. LFTs WNL. CRP and Procal elevated at 33.8 andl 0.6 respectively. Viral panel negative. Doppler negative. Chest XR: No acute cardiopulmonary process Lower extremity CT: preliminary read - severe skin thickening and subcutaneous edema throughout the left lower extremity, primarily involving the calf and dorsum of the foot, consistent with severe cellulitis. Mild blistering present along the anterior mid calf. No fluid collection or abscess. No subcutaneous air. No evidence of osteomyelitis. assuming care. pt is seen and examined. on iv antibio. remains on ra. cultures pending. 10/31 erythema is slightly improved still swollen and weeping. 11/01 will stop vanc and add bactrum. Slowly improving. Pt is doing well, no acuute concerns today Review of Systems Review of Systems: All systems reviewed & are unremarkable except as noted in HPI and below Exam Narrative: General: male in no acute respiratory distress who is nontoxic appearing, resting in bed HEENT: Normocephalic. Atraumatic. Extraocular movement intact. Sclera clear and anicteric. No facial asymmetry. Chest: Lungs are clear to auscultation bilaterally. No wheezes or crackles. CV: Heart was regular rate and rhythm. S1/S2. No murmurs, gallops, or rubs. Abd: Abdomen was soft. Nontender. Nondistended. Positive bowel sounds. Ext: Left lower extremity with bright redness, warmth, and clear weeping drainage extending up to the knee and extending to the mid back of thigh. 3 blisters noted to the pretibial region of the left leg. Right lower extremity with pretibial discoloration and weeping to the calf. DP pulses bilaterally intact. Neuro: Patient is alert and oriented x4. Speech is clear. Psych: Normal mood and affect. Patient is pleasant and cooperative. Const: General: comfortable Objective Data Vital Signs Vital Signs: Vital Signs - 24 hr 10/31/24 21:02 10/31/24 21:05 11/01/24 05:24 Temperature 97.8 F 98.6 F Pulse Rate 87 87 86 Respiratory Rate 18 18 16 Blood Pressure 125/61 135/68 Pulse Oximetry 100 100 98 Oxygen Delivery Room Air 11/01/24 08:00 11/01/24 14:00 Temperature 98.4 F Pulse Rate 85 Respiratory Rate 18 Blood Pressure 123/59 L Pulse Oximetry 100 Oxygen Delivery Room Air Intake/Output Intake/Output: Intake & Output 10/29/24 10/30/24 10/31/24 11/01/24 23:59 23:59 23:59 23:59 Intake Total 2089 4320 4450 1280 Balance 2089 4320 4450 1280 Meds/Results Medications: Active Medications Generic Name Dose Route Start Last Admin Trade Name Freq PRN Reason Stop Dose Admin Acetaminophen 325 mg 10/29/24 05:50 10/29/24 20:05 Acetaminophen 325 Mg Tablet PO 325 mg Q6H PRN Administration Mild Pain (1-3) or Fever Hydrocodone Bitart/Acetaminophen 1 tab 10/29/24 21:18 11/01/24 10:10 Hydrocodone/Acetaminophen (*Crx) 5-325 Mg Tablet PO 1 tab Q6H PRN Administration Pain Rated 4-6 Enoxaparin Sodium 40 mg 10/30/24 09:00 11/01/24 10:01 Enoxaparin 40 Mg/0.4 Ml Syringe SUB-Q 40 mg DAILY DEQUAN Administration Morphine Sulfate 2 mg 10/30/24 08:10 Morphine Sulfate (*Crx) 4 Mg/Ml Inj IV PUSH Q4H PRN Pain Rated 7-10 Naloxone HCl 0.1 mg 10/29/24 21:18 Naloxone Hcl 0.4 Mg/Ml Vial IV PUSH Q5MIN PRN Sedation Trimethoprim/Sulfamethoxazole 2 tab 11/01/24 10:00 11/01/24 10:01 Sulfamethoxazole/Trimethoprim 800/160 Mg Ds Tablet PO 11/04/24 21:01 2 tab Q12HR DEQUAN Administration Radiology Results: ITS Impressions Venous Doppler Study 10/28/24 19:21 IMPRESSION: 1: No lower extremity deep venous thrombosis. Chest X-Ray 10/28/24 19:35 IMPRESSION: 1: NO ACUTE CARDIOPULMONARY DISEASE. Lower Extremity CT 10/29/24 09:07 IMPRESSION: 1. Subcutaneous edema and skin thickening in the left lower limb. No abscess. Labs Labs: Laboratory Results - last 24 hr 11/01/24 09:02 WBC 5.7 RBC 3.84 L Hgb 11.6 L Hct 34.8 L MCV 90.6 MCH 30.2 MCHC 33.3 RDW 12.9 Plt Count 181 MPV 11.4 H Sodium 136 L Potassium 3.9 Chloride 102 Carbon Dioxide 27 Anion Gap 7 BUN 10 Creatinine 0.74 Estim Creat Clear Calc 144 Estimated GFR > 60 Glucose 139 H Calcium 8.3 L Total Bilirubin 0.8 AST 23 ALT 31 Alkaline Phosphatase 94 Total Protein 6.8 Albumin 3.6 Vancomycin Trough 15.4 Quality VTE Prophylaxis VTE prophylaxis: pharmacologic ordered
[2024-11-01 22:00] VITALS: BP 120/54; PULSE 85; RESP 18; TEMP 36.6; O2SAT 100
[2024-11-02 04:17] VITALS: BP 121/75; PULSE 85; RESP 16; TEMP 36.7; O2SAT 100
[2024-11-02 06:20] LABS: Hematocrit 34.3 % (42.0-52.0); Hemoglobin 11.6 g/dL (14.0-18.0); Mean Corpuscular HGB Conc 33.8 g/dl (32-36); Mean Corpuscular Hemoglobin 30.7 pg (26-34); Mean Corpuscular Volume 90.7 fl (80-100); Platelet Count Result 212 k/mm3 (150-375); Red Blood Count 3.78 M/mm3 (4.6-6.20); White Blood Count 5.3 K/mm3 (4.5-10.0)
[2024-11-02 06:39] LABS: Alanine Aminotransferase 29 U/L (6-50); Albumin Level 3.4 g/dL (3.5-5.1); Alkaline Phosphatase 91 U/L (38-126); Anion Gap 6 mmol/L (4-12); Aspartate Amino Transferase 27 U/L (17-59); Bilirubin,Total 0.8 mg/dL (0.2-1.3); Blood Urea Nitrogen 9 mg/dL (9-20); Calcium 8.3 mg/dL (8.4-10.2); Carbon Dioxide 26 mmol/L (22-30); Chloride 102 mmol/L (98-107); Estimated CRCL calculation 134 ml/min; Estimated Glomerular Filt Rate > 60; Glucose 88 mg/dL (65-110); Potassium 3.9 mmol/L (3.4-5.0); Sodium 134 mmol/L (137-145); Total Protein 6.7 g/dL (6.3-8.2)
[2024-11-02] MEDS: ENOXAPARIN 40 MG/0.4 ML SYRINGE SUB-Q (09:14)
[2024-11-02] MEDS: SULFAMETHOXAZOLE/TRIMETHOPRIM 800/160 MG DS TABLET 2 TAB PO (09:14)
[2024-11-02] MEDS: HYDROcodone/acetaminophen (*CRX) 5-325 MG TABLET 1 TAB PO (09:26)
--- NOTE | 2024-11-02 13:47 | P.DS_ITS ---
DS: Admitting Diagnosis Discharge Date 11/02 Admitting Diagnosis cellulitis DS: Discharge Diagnosis Discharge Diagnosis (1) Sepsis: Code(s): A41.9 - Sepsis, unspecified organism Status: Acute (2) Cellulitis: Qualifiers: Laterality: left Site of cellulitis: extremity Site of cellulitis of extremity: lower extremity Qualified Code(s): L03.116 - Cellulitis of left lower limb Code(s): L03.90 - Cellulitis, unspecified Status: Acute (3) Shortness of breath: Code(s): R06.02 - Shortness of breath Status: Acute DS: Summary Hospital Course Hospital Course: 44 year old male with no significant past medical history presents to the hospital for lower extremity pain/redness/swelling to the left lower extremity. Patient states that he has had scabbing/discoloration to the bilateral lower extremities with the right typically being worse than the left since early summer. He notes that the right pretibial discoloration and the weeping wound to the back of the right calf has been ongoing since that time. The left lower extremity was noted to be swollen since then but no significant discoloration or wounds noted. He has been using antibacterial soap and covering the lower extremities with Band-Aids overnight. He states that on Monday he started feeling unwell and was developing a subjective fever, body aches, and chills. He states that the wounds have been stable however at that time he started noticing that the left lower extremity was having worsened swelling and he was developing blisters to the front of his levin. The left leg than became increasingly red and painful with significantly increased weeping. Patient states he thinks he might have cut his leg when scratching himself with his foot. He also notes that he had a pimple to his left knee that had recently formed. He denies a possibility of a cat scratch. Patient is also endorsing increased shortness of breath when lying flat. He states that this has been ongoing since 2020 when he was previously diagnosed with COVID. He states whenever he lies flat he developed coughing and cannot catch his breath. He denies any productive cough. He states that this has been his baseline since 2020 and denies recent worsening. Code status was discussed with patient and he wishes to remain a full code. ED workup: Febrile (temp max 101.1) on arrival to ER with tachycardia. CBC with WBC 9.6, H/H 12.7/38.7, PLT 124. PT/INR and PTT WNL. CBC with Na 135, K 3.3, Cl 104, CO2 18, BUN/Cr 12/0.80. Glucose 85. Lactic WNL. Calcium 8.3. Mag 2.4. Tot Bili 1.4. LFTs WNL. CRP and Procal elevated at 33.8 andl 0.6 respectively. Viral panel negative. Doppler negative. Chest XR: No acute cardiopulmonary process Lower extremity CT: preliminary read - severe skin thickening and subcutaneous edema throughout the left lower extremity, primarily involving the calf and dorsum of the foot, consistent with severe cellulitis. Mild blistering present along the anterior mid calf. No fluid collection or abscess. No subcutaneous air. No evidence of osteomyelitis. 11/01 started on bactrum, vanc stopped. Slowly improving. 11/02 erythema continues to improve. Less weeping. Pt has a PCP who he will f/u with. Will give work excuse for few days if needed. Need to elevate legs throughout the day and use jaylon wrap if able to reduce swelling. Will need a close f/u. Status at Discharge Functional status at discharge: independent ambulation Overall status at discharge: patient is progressing back to baseline Time Spent with Patient Time attestation: Total time spent providing and/or coordinating discharge services: Exam Narrative: General: male in no acute respiratory distress who is nontoxic appearing, resting in bed HEENT: Normocephalic. Atraumatic. Extraocular movement intact. Sclera clear and anicteric. No facial asymmetry. Chest: Lungs are clear to auscultation bilaterally. No wheezes or crackles. CV: Heart was regular rate and rhythm. S1/S2. No murmurs, gallops, or rubs. Abd: Abdomen was soft. Nontender. Nondistended. Positive bowel sounds. Ext: romero lower extremities still erythema present, but clearly improving based on marked area when pt was admitted. DP pulses bilaterally intact. Neuro: Patient is alert and oriented x4. Speech is clear. Psych: Normal mood and affect. Patient is pleasant and cooperative. Const: General: comfortable DS: Data Data Completed and Pending Labs on day of discharge: Labs from last 24 hours 11/02/24 05:36 WBC 5.3 RBC 3.78 L Hgb 11.6 L Hct 34.3 L MCV 90.7 MCH 30.7 MCHC 33.8 RDW 12.9 Plt Count 212 MPV 11.2 H Sodium 134 L Potassium 3.9 Chloride 102 Carbon Dioxide 26 Anion Gap 6 BUN 9 Creatinine 0.80 Estim Creat Clear Calc 134 Estimated GFR > 60 Glucose 88 Calcium 8.3 L Total Bilirubin 0.8 AST 27 ALT 29 Alkaline Phosphatase 91 Total Protein 6.7 Albumin 3.4 L Preliminary micro results at discharge 10/28/24 19:51 Blood Culture - Preliminary Blood 10/28/24 19:57 Blood Culture - Preliminary Blood Discharge Plan Discharge Attending physician on discharge: Beth Rene Consulting providers: Marva Garcia Discharging Clinician: Marsha Wright Patient Disposition: Home Activity: may shower Diet: heart healthy Wound Care Instructions: follow printed instructions Discharge Instructions: Please keep areas to your legs clean and dry- use acewrap if needed for compression and elevate your legs throughout the day to reduce swelling. Continue taking antibiotics until the course is done. YOur next dose is 11/02 in the evening. So take antibitocs in am and pm (like 9pm and 9am). We can give you work excuse for few days if needed. Patient Instructions: Antibiotic Form, Cellulitis (GEN) Patient Language: Slovak Stand Alone Forms: General Discharge Information Follow-up/Referrals: Dagoberto,PASCUAL Velez [Primary Care Provider, [facility]] - 1 Week Discharge Medications: New sulfamethoxazole-trimethoprim 800-160 mg Tablet 2 tab PO Q12HR Qty: 10 0RF Date of admission: 10/31/24 15:54 Primary Care Provider: DagobertoFidel Admitting Provider: Beth Rene Attending physician on admission: Beth Rene Condition: Stable Quality VTE Prophylaxis VTE prophylaxis: pharmacologic ordered Hospitalist MIPS Heart Failure (Exclusion) Patient has history of Heart Transplant or Left Ventricular Assistive Device?: No IF YES, STOP HERE Heart Failure (Qualifier) Patient has current or prior documentation of LVEF less than or equal to 40%, or mod/servere depressed LVSF?: No IF NO, STOP HERE
[2024-11-02 14:00] VITALS: BP 135/57; PULSE 85; RESP 14; TEMP 36; O2SAT 100
== END 2024-11-02 17:00 | disposition home or self-care (01) | DRG 720 ==
LOC: ANHED 10-29 02:19 → ANH3MEDSUR 10-29 02:24
PROVIDERS: Physician Assistant; Student in an Organized Health Care Education/Training Program; Admitting Provider General Practice; Emergency Provider Physician Assistant; PCP Physician Assistant; Visit Provider Nurse Practitioner
DX: A41.9 Sepsis, unspecified organism (principal); L03.116 Cellulitis of left lower limb; E66.2 Morbid (severe) obesity with alveolar hypoventilation; F10.90 Alcohol use, unspecified, uncomplicated; Z77.22 Contact with and (suspected) exposure to environmental tobacco smoke (acute) (chronic); X58.XXXD Exposure to other specified factors, subsequent encounter; X58.XXXA Exposure to other specified factors, initial encounter; Z20.822 Contact with and (suspected) exposure to COVID-19; Z68.42 Body mass index [BMI] 45.0-49.9, adult; Z86.16 Personal history of COVID-19
CPT/HCPCS: 36415; 71046; 73701; 80053; 80202; 82565; 83605; 83735; 83880; 84145; 84484; 85025; 85027; 85610; 85730; 86140; 87040; 87637; 93005; 93971; 94762; 96365; 96366; 96372; 99285; A9270; G0378; J1650; J3373; Q9967

== ENCOUNTER 2024-11-11 17:01 | Inpatient (IN) | payer SELFPAY ==
--- NOTE | ~2024-11-11 | CT_ITS ---
EXAMINATION: CT LE LT w con DATE: 11/11/2024 22:41 INDICATION: Edema and erythema at the left lower limb TECHNIQUE: High resolution computed tomography (CT) of the left lower limb from the mid thigh through the foot was performed with 100 mL Omnipaque-350 intravenous contrast. Additional sagittal and coronal reconstructions were performed. Automated exposure control and iterative reconstruction technique were employed. The dose-length product was 1355.68 mGy-cm. COMPARISON: None FINDINGS: Again seen is skin thickening and subcutaneous edema throughout the left calf with decrease in the severity of the subcutaneous edema. No abscess or other abnormal fluid collections. No soft tissue gas. Bone alignment is normal. No fracture. 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 No left knee or ankle joint effusion. No periosteal reaction or cortical erosions to suggest osteomyelitis. Moderate-sized Achilles and plantar calcaneal spurs. No filling defects in the veins of the left lower leg to suggest deep venous thrombosis. IMPRESSION: 1. Skin thickening and interval improvement in nonspecific subcutaneous edema throughout the left calf which could be due to cellulitis or venous insufficiency. No abscess or venous thrombosis. Reviewed, dictated and finalized at location A. IMPRESSION: 1. Skin thickening and interval improvement in nonspecific subcutaneous edema t hroughout the left calf which could be due to cellulitis or venous insufficienc y. No abscess or venous thrombosis.
--- OUTSIDE RECORDS SUMMARY | 2024-11-11 17:03 | XMS_ITS | Continuity of Care Document ---
Author Organization [employer] [facility] Address [address] [place] [address] Assessment No assessment recorded. Plan of Treatment Reminders Order Date Submit Date Provider Last Modified By Organization Details Last Modified Time Details Appointments Follow Up 15 2024 03:30P M Lala Melo NP Not available Not available Not available Hospital Follow Up 2024 11:00A M Lala Melo NP Not available Not available Not available Lab None recorded. Referral None recorded. Procedures None recorded. Surgeries None recorded. Imaging None recorded. Medication Orders None recorded. Patient TargetsNo targets recorded. Patient InstructionsNo instructions recorded. Reason for Referral None Reported. Problems Name Problem SNOMED Code Status Onset Date Resolution Date Notes Provider Name and Address Organization Details Recorded Time Acute depression 888357800 Active 2023 Gabriella aRmírez RN [facility], [employer] 4 09:24:50 Elevated blood-press ure reading without diagnosis of hypertensio n 179337617 Active 2023 LINDA Dyson [address], [address] [address], [place], [address], [employer] 4 09:33:08 Mixed anxiety and depressive disorder 142367091 Active 2023 LINDA Dyson [address], [place], [address], [employer] 4 09:36:35 Vitamin D deficiency 07393420 Active 2023 LINDA Dyson [address], [place], [address], [employer] 4 15:00:30 Cellulitis of left lower limb 4106931535226 9109 Active 2024 LINDA Dyson [address] [facility] [facility] [address], [place], [address], [facility] [employer] 5 15:45:34 Problem Notes None recorded. Procedures Surgical History Date Name Laterality Status Provider Name and Address Organization Details Recorded Time 11/06/2024 Transition al_Care_Ma nagement completed GENEVA Eddy [place] [facility] [employer] 11/06/2024 15:26:24 Imaging Results None recorded. Procedure Notes None recorded. Medical Equipment None Reported. Allergies No known drug allergies Medications Name Sig Start Date Stop Date Status Note LastModified by Organization Details LastModified Time clindamycin HCl 300 mg capsule TAKE 1 CAPSULE BY MOUTH EVERY 6 HOURS FOR 7 DAYS active Not Available Not Available No t Available sulfamethoxa zole 800 mg-trimethop rim 160 mg tablet TAKE 2 TABLETS BY MOUTH EVERY 12 HOURS 11/06 completed Not Available Not Available Not Available sertraline 25 mg tablet Take 1 tablet every day by oral route. 11/06 completed Not Available Not Available Not Available ergocalcifer ol (vitamin D2) 1,250 mcg (50,000 unit) capsule Take 1 capsule every week by oral route. 11/06 completed Not Available Not Available Not Available Vitals Date Recorded Body height Body mass index (BMI) Body weight Body temperature Heart rate Oxygen saturation Oxygen saturation in Arterial blood by Pulse oximetry Systolic And Diastolic Provider Name and Address Organization Details Last Updated DateTime 167.64 cm 50.4 kg/m2 897601. 82 g 98.2 [degF] 87 /min 97 % 97 % 130/84 mm[Hg] Alexander Ellis AMOLJeri [employer] [facility] [employer] 16:18:54 Social History None recorded. Functional Status None recorded. Mental Status None recorded. Family History Relationship Description Onset Age of this Age Resolved Age Notes LastModified by Organization Details LastModified Time Maternal Grandmother Family history of breast cancer gene BRCA mutation [id number] Not available 09/2023 09:25:15 Maternal Grandfather Malignant neoplasm of bone [id number] Not available 09/2023 09:25:23 Mother Family history of stroke [id number] Not available 09/2023 09:25:29 Medical History No medical history recorded. Immunizations Vaccine Type Date Status Note Provider Nam e and Address Organization Details Recorded Time Td (adult), 2 Lf tetanus toxoid, preservative free, adsorbed 4 completed Not Available [facility] 11/11/2024 16:12:13 MMR 4 completed Not Available [facility] 11/11/2024 16:12:13 Td (adult), 2 Lf tetanus toxoid, preservative free, adsorbed 5 completed Not Available [facility] 11/11/2024 16:12:13 Past Encounters Encounter ID Performer Location Encounter Start Date Encounter Closed Date Diagnosis/Indication Diagnosis SNOMED-CT Code Diagnosis ICD10 Code Diagnosis IMO Codes Diagnosis Note [id number] LINDA Dyson [facility] Primary Care [facility] [address] [place] [address] 11/06/2024 15:22:47 11/06/2024 15:58:11 Transition of care 9371317688 105 Z75.8 Cellulitis of left lower limb 1255123968 6047507 L03.636 [id number] Will continue treatment as listed below.Valentina ent to follow up on Monday for re-evaluat ion.Patien t to remain off work until follow up. [id number] LINDA Dyson [facility] Primary Care [facility] [address] [address] [place] [address] 11/11/2024 16:10:47 11/11/2024 16:32:05 Cellulitis of left lower limb 5821335827 2547574 L03.450 [id number] Patient sent to ER for re-evaluat ion due to area of possible necrosis. Health Concerns Section Related Observation LastModified by Organization Detai ls LastModified Time None Recorded Concern Status LastModified by Organization Details LastModified Time None Recorded Payers Encounter Date Sequence Insurance Name Policy Number Policy Kay Covered Member ID Kay Member ID Guarantor Name 11/11/2024 1 *SELF PAY* Ri paulie Pineda Notes Date Note Type Note Provider Name and Address Organization Details Recorded Time 11/11/2024 text/html ROS as noted in the HPI Patient is a 44 year old male that presents to the office for follow up. Patient has 2 days of Clindamycin remaining with not much improvement. Patient was initially treated in ER on 10/28/24 at [place], was admitted until 11/02/24, discharged with Bactrim. SIS Dyson-Jerardo [address], [place], [address], [facility] 11/11/2024 16:34:06
--- OUTSIDE RECORDS SUMMARY | 2024-11-11 17:03 | XMS_ITS | Data Portability ---
Author Organization [place] [facility] [employer], Main Office Address [address] [place] [address] Assessment Encounter Date Assessment Date Assessment LastModified by Organization Details LastModified Time 11/06/2024 11/06/2024 I have reconciled the patient's medications post their discharge from inpatient facility. Not available 11/06/2024 15:26:23 Plan of Treatment Reminders Order Date Submit Date Provider Last Modified By Organization Details Last Modified Time Details Appointments Follow Up 15 2024 03:30P Melanie Melo NP Not available Not available Not available Hospital Follow Up 2024 11:00A Melanie Melo NP Not available Not available Not available Lab CMP, serum or plasma 2023 024 [facility] (Lab), [address] [place], [address], 11/14/2023 21:09:26 CBC w/ auto diff 2023 024 [facility] (Lab), [address] [place], [address], 11/14/2023 21:09:26 glycohemo globin, total, blood [email or web address] [place] [address] (Lab), [address] [place], [address], 11/21/2023 08:35:16 vitamin D, 25-hydrox y, total, serum 2023 024 [facility] (Lab), [address] [place], [address], 11/14/2023 21:09:27 lipid panel, serum 2023 024 [facility] (Lab), [address] [place], [address], 11/14/2023 21:09:27 TSH, serum or plasma [address] [place] [address] (Lab), [address] [place], [address], 11/21/2023 08:35:16 Referral None recorded. Procedures None recorded. Surgeries None recorded. Imaging None recorded. Medication Orders clindamyc in HCl 300 mg capsule 2024 025 [facility] [place], [address], 11/06/2024 15:53:25 sertralin e 25 mg tablet 2023 024 [facility] [address], [address] [place], [address], 11/06/2024 15:31:06 Patient TargetsNo targets recorded. Patient Instructions Encounter Date Encounter Id Patient Instructions Last Modified By Organization Details Last Modified Time 11/06/2024 [id number] Thank you for your visit to our office today. We would like to request that you reach out to your referring or previous provider and request that they send us a Summary of Care in electronic form, so that we may have it on file in your medical record. At your visit, we had the medical records we needed to provide you with the best possible care; however, for insurance purposes, an electronic Summary of Care is beneficial. Thank you for your assistance in obtaining this information and we look forward to providing continued care to you. Please review your medication list from the Summary of Care for this visit. If there are any differences from what you are currently taking at home, please call us to discuss. Not available 11/06/2024 15:26:23 Homebound Status : Required Home Health Services: Durable Medical Equipment needed: Billing Guidelines CPT code 01269- Transitional Care Management services with moderate medical decision complexity (cgwm-wk-kdli visit within 14 days of discharge). CPT code 37177- Transitional Care Management services with high medical decision complexity (uyhk-wn-shil visit within 7 days of discharge). Not available 11/06/2024 15:26:23 Reason for Referral None Reported. Results Created Date Observation Date Name Description Value Unit Range Abnormal Flag Note LastModifiedBy Organization Detail LastModifiedTime Result Notes None recorded. Problems Name Problem SNOMED Code Status Onset Date Resolution Date Notes Provider Name and Address Organization Details Recorded Time Acute depression 063782633 Active 2023 Gabriella Ramírez RN null, [employer] 4 09:24:50 Elevated blood-press ure reading without diagnosis of hypertensio n 643622445 Active 2023 LINDA Dyson [address], [address], [place], [address], [employer] 4 09:33:08 Mixed anxiety and depressive disorder 428978659 Active 2023 LINDA Dyson [address], [address], [place], [address], [employer] 4 09:36:35 Vitamin D deficiency 94383146 Active 2023 LINDA Dyson [address], [address], [place], [address], [employer] 4 15:00:30 Cellulitis of left lower limb 0964090249236 9109 Active 2024 LINDA Dyson [address], [address], [place], [address], [employer] 5 15:45:34 Problem Notes None recorded. Procedures Surgical History Date Name Laterality Status Provider Name and Address Organization Details Recorded Time 11/06/2024 Transition al_Care_Ma nagement completed GENEVA Eddy [employer] 11/06/2024 15:26:24 Imaging Results None recorded. Procedure [...] and Address Organization Details Last Updated DateTime 5 167.64 cm 50 kg/m2 816164. 63 g 98.4 [degF] 96 /min 95 % 95 % 140/80 mm[Hg] GENEVA Eddy [employer] [facility] [employer] 5 15:34:15 Date Recorded Body height Body mass index (BMI) Body weight Body temperature Heart rate Oxygen saturation Oxygen saturation in Arterial blood by Pulse oximetry Systolic And Diastolic Provider Name and Address Organization Details Last Updated DateTime 5 167.64 cm 50.4 kg/m2 977587. 82 g 98.2 [degF] 87 /min 97 % 97 % 130/84 mm[Hg] Alexander Ellis Jeri [employer] [facility] [employer] 5 16:18:54 Date Recorded Body weight Body mass index (BMI) Body height Body temperature Heart rate Oxygen saturation Oxygen saturation in Arterial blood by Pulse oximetry Systolic And Diastolic Provider Name and Address Organization Details Last Updated DateTime 4 976356. 03 g 58.6 kg/m2 167.64 cm 98.1 [degF] 90 /min 98 % 98 % 148/88 mm[Hg] Gabriella Ramírez RN [facility] [employer] [facility] 4 09:24:16 Social History None recorded. Functional Status None recorded. Mental Status None recorded. Family History Relationship Description Onset Age of this Age Resolved Age Notes LastModified by Organization Details LastModified Time Maternal Grandmother Family history of breast cancer gene BRCA mutation [id number] Not available 09/2023 09:25:15 Maternal Grandfather Malignant neoplasm of bone [id number] Not available 09/2023 09:25:23 Mother Family history of stroke [id number] Not available 09/2023 09:25:29 Medical History No medical history recorded. Immunizations Vaccine Type Date Status Note Provider Nam e and Address Organization Details Recorded Time Td (adult), 2 Lf tetanus toxoid, preservative free, adsorbed 4 completed Not Available [facility] 11/11/2024 16:12:13 MMR 4 completed Not Available [facility] 11/11/2024 16:12:13 Td (adult), 2 Lf tetanus toxoid, preservative free, adsorbed 5 completed Not Available [facility] 11/11/2024 16:12:13 Past Encounters Encounter ID Performer Location Encounter Start Date Encounter Closed Date Diagnosis/Indication Diagnosis SNOMED-CT Code Diagnosis ICD10 Code Diagnosis IMO Codes Diagnosis Note [id number] LINDA Dyson [facility] Primary Care [address] [place] [address] 11/14/2023 09:02:34 11/14/2023 10:14:00 Adult health examination 813608423 Z00.00 Discussed medication compliance and routine follow up.Discuss ed healthy diet and routine exercise.R charlotteiewed vaccine records and made recommenda tions as needed.Enc ouraged annual eye and dental exams, as well as twice yearly dental cleanings. Will check screening labs as listed below. Elevated blood-pressure reading without diagnosis of hypertension 245968875 R03.0 148/88Disc ussed DASH diet and routine heart healthy exercise. Body mass index 40+ - severely obese 465456742 Z68.43 BMI 58.6Discus sed healthy diet and routine exercise.D iscussed portion control. Mixed anxi ety and depressive disorder 206636577 F41.8 ZEKE-7 (01/26)PHQ -9 ()Den ies SI/HI.Will start treatment as listed below. Patient will follow up in 6-8 weeks, sooner if needed. [id number] LINDA Dyson [facility] Primary Care [facility] [address] [place] [address] 11/06/2024 15:22:47 11/06/2024 15:58:11 Transition of care 8596930676 105 Z75.8 Cellulitis of left lower limb 4611690883 8902311 L03.340 [id number] Will continue treatment as listed below.Valentina ent to follow up on Monday for re-evaluat ion.Patien t to remain off work until follow up. [id number] LINDA Dyson [facility] Primary Care [facility] [address] [place] [address] 11/11/2024 16:10:47 11/11/2024 16:32:05 Cellulitis of left lower limb 2832247005 5529127 L03.367 [id number] Patient sent to ER for re-evaluat ion due to area of possible necrosis. Health Concerns Section Related Observation LastModified by Organization Detai ls LastModified Time None Recorded Concern Status LastModified by Organization Details LastModified Time None Recorded Advance Directives Directive None Recorded Payers Insurance Date Sequence Insurance Name Policy Number Policy Kay Covered Member ID Kay Member ID Guarantor Name 11/06/2024 1 [place] [facility] Mauro Carrero [id number] Mauro Pineda 11/06/2024 1 *SELF PAY* Pebbles Pineda Notes Date Note Type Note Provider Name and Address Organization Details Recorded Time 11/14/2023 text/html ROS as noted in the HPI Patient is a 43 year old male that presents to the office to establish care. Patient has not been to a PCP in more than 10 years. Patient does not take any daily medications. Patient is concerned with anxiety and depression, has had a lot going on with work and life recently. Patient reports he is in a constant state of worry, does not sleep well at night. Patient has not been treated for anxiety or depression in the past. Patient reports he lacks energy which is effecting his weight loss due to not having the ambition to exercise. Patient has been working on his diet and exercise, has tried to limit soda intake but has been unsuccessful. labs-orderedcolono scopy-age 45Flu-declinesCovi h-thdlagvrMqub-kfw re LINDA Dyson [address], [place], [address], [employer] 11/14/2023 11:04:11 11/06/2024 text/html ROS as noted in the HPI Patient is a 44 year old male that presents to the office for hospital follow up. Patient was recently in the hospital for cellulitis of left lower extremity (hospital notes not available at time of appt).Patient reports he is doing well, denies pain of left lower extremity, denies fevers. Patient reports he has not been cleaning left lower extremity instead he just lets soap water run down his leg. LINDA Dyson [address], [place], [address], [employer] 11/10/2024 21:44:46 11/11/2024 text/html ROS as noted in the HPI Patient is a 44 year old male that presents to the office for follow up. Patient has 2 days of Clindamycin remaining with not much improvement. Patient was initially treated in ER on 10/28/24 at [place], was admitted until 11/02/24, discharged with Bactrim. LINDA Dyson [address], [place], [address], [employer] 11/11/2024 16:34:06
[2024-11-11 17:33] VITALS: BP 170/82; PULSE 108; RESP 20; TEMP 37.2; O2SAT 100
--- NOTE | 2024-11-11 17:35 | ED.SKABFB ---
HPI - Skin/Abscess/Foreign Bdy General Chief complaint: Skin/Abscess/Foreign Body <Herve Rodriguez APRN - Last Filed: 11/11/24 17:36> Stated complaint: worsening cellulitis <Herve Rodriguez APRN - Last Filed: 11/11/24 17:36> Time Seen by Provider: 11/11/24 21:21 <Herve Rodriguez APRN - Last Filed: 11/11/24 17:36> Focused HPI: 44-year-old male returns to the ER at the recommendation of his PCP for evaluation of cellulitis to his left lower leg. Patient states he was seen here several weeks ago for cellulitis where he was admitted for 6 days for IV antibiotics. Patient states his PCP encouraged him to return to the ER for possible surgical debridement. Patient is currently taking oral antibiotics. Denies fever. GENERAL: Well-appearing, well-nourished, and in no acute distress. HEAD: Normocephalic, atraumatic. CHEST: Clear to auscultation. No respiratory distress. HEART: Regular rate and rhythm. NEURO: Alert and oriented x3. Patient screened in triage and initial orders placed. Additional care and disposition to be based upon diagnostic testing and treatment. <Herve Rodriguez APRN - Last Filed: 11/11/24 17:36> Related Data Allergies/Adverse reactions: Allergies Allergy/AdvReac Type Severity Reaction Status Date / Time No Known Allergies Allergy Unverified 01/02/24 10:28 <Herve Rodriguez APRN - Last Filed: 11/11/24 17:36> Review of Systems Review of Systems: All systems reviewed & are unremarkable except as noted in HPI and below <Adalgisa Earl PA-C - Last Filed: 11/12/24 03:36> PMFSH Social History Social History: Social History (Updated 10/29/24 @ 15:44 by Marva Garcia PA-C) Social History: Lives at home with and her cousin. Has 3 cats. Smoking status: Never smoker Second hand tobacco smoke exposure: Yes Alcohol intake: current Drinks per week: 2 Substance use: never Lack of Transportation: No Lack of Food: Never True Current Housing: I Have Housing Concerned About Future Housing: No Difficulty Paying Gas/Electric Bills: No Difficulty Paying for Meds: No Currently Unemployed: No Education: High School Diploma/GED Difficulty w/ Childcare or Family Care: No Spiritual care concerns: No <Herve Rodriguez, CIRILO - Last Filed: 11/11/24 17:36> Exam Narrative: GENERAL: Well-appearing, well-nourished, and in no acute distress. HEAD: Normocephalic, atraumatic. EYES: EOMI. CHEST: No respiratory distress. HEART: Regular rate EXTREMITIES: Normal range of motion. Normal DP pulse. Normal sensation. Redness and swelling to the left lower leg below the knee. Overlying scabbing to the anterior levin with green discoloration SKIN: Warm, dry, no rash. NEURO: No focal deficits. Alert and oriented x3. PSYCH: Normal mood and affect <Adalgisa Earl PA-C - Last Filed: 11/12/24 03:36> Course Vital Signs Vital signs: Vital Signs Temperature 98.9 F 11/11/24 17:33 Pulse Rate 108 H 11/11/24 17:33 Respiratory Rate 20 11/11/24 17:33 Blood Pressure 170/82 H 11/11/24 17:33 Pulse Oximetry 100 11/11/24 17:33 Oxygen Delivery Room Air 11/11/24 17:33 Temperature 98.0 F 11/12/24 02:25 Pulse Rate 86 11/12/24 02:25 Respiratory Rate 14 11/12/24 02:25 Blood Pressure 131/78 11/12/24 02:25 Pulse Oximetry 100 11/12/24 02:25 Oxygen Delivery Room Air 11/11/24 17:33 <Herve Rodriguez, [employer] - Last Filed: 11/11/24 17:36> Vital Signs Temperature 98.9 F 11/11/24 17:33 Pulse Rate 108 H 11/11/24 17:33 Respiratory Rate 20 11/11/24 17:33 Blood Pressure 170/82 H 11/11/24 17:33 Pulse Oximetry 100 11/11/24 17:33 Oxygen Delivery Room Air 11/11/24 17:33 Temperature 98.0 F 11/12/24 02:25 Pulse Rate 86 11/12/24 02:25 Respiratory Rate 14 11/12/24 02:25 Blood Pressure 131/78 11/12/24 02:25 Pulse Oximetry 100 11/12/24 02:25 Oxygen Delivery Room Air 11/11/24 17:33 <Adalgisa Earl PA-C - Last Filed: 11/12/24 03:36> MDM - Skin/Abscess/Foreign Bdy [facility] Narrative Medical decision making narrative: Patient presents the emergency department for worsening left lower extremity cellulitis. Was admitted for this several weeks prior. Reports improvement upon discharge. Has had secondary worsening again. Was started on clindamycin by his PCP without relief. He is afebrile and nontoxic appearing. Cbc without leukocytosis. Inflammatory markers are elevated. CT lower extremity without evidence of abscess. Spoke with general surgery who will consult. Spoke with hospitalist about patient and workup who accepts admission. Blood cultures obtained, patient started on IV antibiotics <Adalgisa Earl PA-C - Last Filed: 11/12/24 03:36> Differential Diagnosis Differential diagnosis: Likely abscess of skin or subcutaneous tissue and cellulitis <Adalgisa Earl PA-C - Last Filed: 11/12/24 03:36> Lab Data Attestation: I reviewed the patient's lab results. <Adalgisa Earl PA-C - Last Filed: 11/12/24 03:36> Result diagrams: 11/11/24 20:46 11/11/24 20:46 <Herve Rdoriguez APRN - Last Filed: 11/11/24 17:36> Labs: Lab Results 11/11/24 Range/Units 20:46 WBC 7.7 (4.5-10.0) K/mm3 RBC 4.32 L (4.6-6.20) M/mm3 Hgb 13.0 L (14.0-18.0) g/dL Hct 38.0 L (42.0-52.0) % MCV 88.0 (80-100) fl MCH 30.1 (26-34) pg MCHC 34.2 (32-36) g/dl RDW 12.6 (11.5-14.5) % Plt Count 238 (150-375) k/mm3 MPV 11.1 H (7.4-10.4) fl Immature Gran % (Auto) 0.4 (0-0.5) % Neut % (Auto) 70.5 (45.5-73.1) % Lymph % (Auto) 23.5 (18.3-44.2) % Ramsey % (Auto) 4.3 (2.6-8.5) % Eos % (Auto) 0.4 (0-4.4) % Baso % (Auto) 0.9 (0.2-1.2) % Lymph # (Auto) 1.82 (0.9-3.2) K/mm3 Ramsey # (Auto) 0.3 (0.1-0.6) K/mm3 Eos # (Auto) 0.0 (0-0.3) K/mm3 Baso # (Auto) 0.1 (0.0-0.1) K/mm3 Abs Immat Gran (auto) 0.03 (0.00-0.031) K/mm3 Absolute Neuts (auto) 5.5 (1.3-6.7) K/mm3 Absolute Nucleated RBC 0.000 (0.0-0.012) K/mm3 Nucleated RBC % 0.0 (0.0-0.2) % ESR 79 H (0-20) mm/hr Sodium 137 (137-145) mmol/L Potassium 4.3 (3.4-5.0) mmol/L Chloride 103 (98-107) mmol/L Carbon Dioxide 23 (22-30) mmol/L Anion Gap 11 (4-12) mmol/L BUN 13 (9-20) mg/dL Creatinine 0.87 (0.7-1.3) mg/dL Estim Creat Clear Calc 127 ml/min Estimated GFR > 60 (59 - ) Glucose 100 (65-110) mg/dL Hemoglobin A1c 4.7 (<5.7) % Calcium 9.1 (8.4-10.2) mg/dL Total Bilirubin 0.6 (0.2-1.3) mg/dL AST 26 (17-59) U/L ALT 27 (6-50) U/L Alkaline Phosphatase 89 (38-126) U/L C-Reactive Protein 1.8 H (<1.0) mg/dL Total Protein 8.4 H (6.3-8.2) g/dL Albumin 4.4 (3.5-5.1) g/dL <Herve Rodriguez, [employer] - Last Filed: 11/11/24 17:36> Lab Results 11/11/24 Range/Units 20:46 WBC 7.7 (4.5-10.0) K/mm3 RBC 4.32 L (4.6-6.20) M/mm3 Hgb 13.0 L (14.0-18.0) g/dL Hct 38.0 L (42.0-52.0) % MCV 88.0 (80-100) fl MCH 30.1 (26-34) pg MCHC 34.2 (32-36) g/dl RDW 12.6 (11.5-14.5) % Plt Count 238 (150-375) k/mm3 MPV 11.1 H (7.4-10.4) fl Immature Gran % (Auto) 0.4 (0-0.5) % Neut % (Auto) 70.5 (45.5-73.1) % Lymph % (Auto) 23.5 (18.3-44.2) % Ramsey % (Auto) 4.3 (2.6-8.5) % Eos % (Auto) 0.4 (0-4.4) % Baso % (Auto) 0.9 (0.2-1.2) % Lymph # (Auto) 1.82 (0.9-3.2) K/mm3 Ramsey # (Auto) 0.3 (0.1-0.6) K/mm3 Eos # (Auto) 0.0 (0-0.3) K/mm3 Baso # (Auto) 0.1 (0.0-0.1) K/mm3 Abs Immat Gran (auto) 0.03 (0.00-0.031) K/mm3 Absolute Neuts (auto) 5.5 (1.3-6.7) K/mm3 Absolute Nucleated RBC 0.000 (0.0-0.012) K/mm3 Nucleated RBC % 0.0 (0.0-0.2) % ESR 79 H (0-20) mm/hr Sodium 137 (137-145) mmol/L Potassium 4.3 (3.4-5.0) mmol/L Chloride 103 (98-107) mmol/L Carbon Dioxide 23 (22-30) mmol/L Anion Gap 11 (4-12) mmol/L BUN 13 (9-20) mg/dL Creatinine 0.87 (0.7-1.3) mg/dL Estim Creat Clear Calc 127 ml/min Estimated GFR > 60 (59 - ) Glucose 100 (65-110) mg/dL Hemoglobin A1c 4.7 (<5.7) % Calcium 9.1 (8.4-10.2) mg/dL Total Bilirubin 0.6 (0.2-1.3) mg/dL AST 26 (17-59) U/L ALT 27 (6-50) U/L Alkaline Phosphatase 89 (38-126) U/L C-Reactive Protein 1.8 H (<1.0) mg/dL Total Protein 8.4 H (6.3-8.2) g/dL Albumin 4.4 (3.5-5.1) g/dL <Adalgisa Earl PA-C - Last Filed: 11/12/24 03:36> Imaging Data Radiologist's impression: ITS Impressions Lower Extremity CT 11/11/24 22:42 IMPRESSION: 1. Skin thickening and interval improvement in nonspecific subcutaneous edema throughout the left calf which could be due to cellulitis or venous insufficiency. No abscess or venous thrombosis. <Adalgisa Earl PA-C - Last Filed: 11/12/24 03:36> Critical Care Time Critical Care Time Critical Care Time: No <Adalgisa Earl PA-C - Last Filed: 11/12/24 03:36> Discharge Plan Discharge Clinical Impression: Cellulitis Qualifiers: Site of cellulitis: extremity Site of cellulitis of extremity: lower extremity Laterality: left Qualified Code(s): L03.116 - Cellulitis of left lower limb <Herve Rodriguez APRN - Last Filed: 11/11/24 17:36> Patient Disposition: Still a Patient <CIRILO Paz Last Filed: 11/11/24 17:36> Condition: Stable <Herve Rodriguez APRN - Last Filed: 11/11/24 17:36>
[2024-11-11 20:55] LABS: Hematocrit 38.0 % (42.0-52.0); Hemoglobin 13.0 g/dL (14.0-18.0); Immature Granulocyte Percent A 0.4 % (0-0.5); Lymphocytes Absolute Auto 1.82 K/mm3 (0.9-3.2); Mean Corpuscular HGB Conc 34.2 g/dl (32-36); Mean Corpuscular Hemoglobin 30.1 pg (26-34); Mean Corpuscular Volume 88.0 fl (80-100); Nucleated Red Blood Cells Absolute Auto 0.000 K/mm3 (0.0-0.012); Nucleated Red Blood Cells Perc 0.0 % (0.0-0.2); Platelet Count Result 238 k/mm3 (150-375); Red Blood Count 4.32 M/mm3 (4.6-6.20); White Blood Count 7.7 K/mm3 (4.5-10.0)
[2024-11-11 21:15] LABS: Alanine Aminotransferase 27 U/L (6-50); Albumin Level 4.4 g/dL (3.5-5.1); Alkaline Phosphatase 89 U/L (38-126); Anion Gap 11 mmol/L (4-12); Aspartate Amino Transferase 26 U/L (17-59); Bilirubin,Total 0.6 mg/dL (0.2-1.3); Blood Urea Nitrogen 13 mg/dL (9-20); CRP 1.8 mg/dL (<1.0); Calcium 9.1 mg/dL (8.4-10.2); Carbon Dioxide 23 mmol/L (22-30); Chloride 103 mmol/L (98-107); Estimated CRCL calculation 127 ml/min; Estimated Glomerular Filt Rate > 60; Glucose 100 mg/dL (65-110); Potassium 4.3 mmol/L (3.4-5.0); Sodium 137 mmol/L (137-145); Total Protein 8.4 g/dL (6.3-8.2)
[2024-11-11 22:23] LABS: Hemoglobin A1C 4.7 % (<5.7)
[2024-11-12] MEDS: CEFEPIME 2 GM in SODIUM CHLORIDE 0.9% IV 50 ML 100 ML IVPB (00:04)
[2024-11-12 02:25] VITALS: BP 131/78; PULSE 86; RESP 14; TEMP 36.7; O2SAT 100
[2024-11-12] MEDS: VANCOMYCIN 1,250 MG/NS 250 ML 1,250 MG/250 ML BAG 166.67 MG IVPB ×2 (02:38→04:31)
[2024-11-12 03:47] VITALS: BMI 45.7
--- NOTE | 2024-11-12 03:50 | ADMGEN ---
This patient, Mauro Pineda, was admitted to 2 Medical Room 250-. Patient/family oriented to hospital policies and general routines including ID bracelet, bed and alarms, visiting hours, pain management, procedures, bathroom and other care routines, personal items, smoking policy, room service/diet, and visiting hours. Information on how to activate the Rapid Response Team has been discussed. Patient/Family are encouraged to report perceived risks to care and to ask questions if they do not understand what they are told or what they should do.
[2024-11-12 03:59] VITALS: BP 128/78; PULSE 85; RESP 18; TEMP 36.8; O2SAT 99
[2024-11-12 05:11] LABS: Hematocrit 38.2 % (42.0-52.0); Hemoglobin 12.5 g/dL (14.0-18.0); Immature Granulocyte Percent A 0.4 % (0-0.5); Lymphocytes Absolute Auto 1.69 K/mm3 (0.9-3.2); Mean Corpuscular HGB Conc 32.7 g/dl (32-36); Mean Corpuscular Hemoglobin 30.0 pg (26-34); Mean Corpuscular Volume 91.6 fl (80-100); Nucleated Red Blood Cells Absolute Auto 0.000 K/mm3 (0.0-0.012); Nucleated Red Blood Cells Perc 0.0 % (0.0-0.2); Platelet Count Result 221 k/mm3 (150-375); Red Blood Count 4.17 M/mm3 (4.6-6.20); White Blood Count 5.6 K/mm3 (4.5-10.0)
[2024-11-12 05:43] LABS: Anion Gap 10 mmol/L (4-12); Blood Urea Nitrogen 13 mg/dL (9-20); Calcium 9.0 mg/dL (8.4-10.2); Carbon Dioxide 25 mmol/L (22-30); Chloride 102 mmol/L (98-107); Estimated CRCL calculation 120 ml/min; Estimated Glomerular Filt Rate > 60; Glucose 85 mg/dL (65-110); Magnesium 2.3 mg/dL (1.6-2.3); Potassium 3.9 mmol/L (3.4-5.0); Sodium 137 mmol/L (137-145)
[2024-11-12 06:00] VITALS: BP 121/65; PULSE 77; RESP 18; TEMP 37.1; O2SAT 98
--- NOTE | 2024-11-12 07:18 | P.HP_ITS ---
H&P: HPI History of Present Illness Date/Time: 11/12/24 07:18 Chief Complaint: leg lower leg infection Narrative: Patient is a 44 yo male with no significant past medical history who presented to the emergency department with complaints of left lower extremity with concerns for left lower extremity infection. Patient was admitted 10/2024 with similar complaints, discharged on Bactrim. Symptoms initially improved and then worsened again. His PCP started him on clindamycin with no improvement so he was instructed to come to the ER. He reports continued erythema, edema and pain. Denies significant drainage. Denies fevers, chills, chest pain, shortness for breath, nausea, vomiting, loss of sensation. Patient is able to ambulate without assistance. In ED, WBC 5.6, ESR 79, CRP 1.5. Lower extremity CT with skin thickening, interval nonspecific subcutaneous edema throughout the left calf. No abscess or venous thrombosis. Patient was started on cefepime and vancomycin. Patient admitted for general surgery consultation. Review of Systems Review of Systems: All systems reviewed & are unremarkable except as noted in HPI and below PMFSH Social History Social History (Updated 10/29/24 @ 15:44 by Marva Garcia PA-C) Social History: Lives at home with and her cousin. Has 3 cats. Smoking status: Never smoker Second hand tobacco smoke exposure: Yes Alcohol intake: current Drinks per week: 1 Substance use: never Lack of Transportation: No Lack of Food: Never True Current Housing: I Have Housing Concerned About Future Housing: No Difficulty Paying Gas/Electric Bills: No Difficulty Paying for Meds: No Currently Unemployed: No Education: High School Diploma/GED Difficulty w/ Childcare or Family Care: No Spiritual care concerns: No Meds Home Medications and Allergies Home Medications ?Medication ?Instructions ?Recorded ?Confirmed ?Type clindamycin HCl 300 mg capsule 300 mg PO Q6H 11/12/24 11/12/24 History Allergies Allergy/AdvReac Type Severity Reaction Status Date / Time No Known Allergies Allergy Unverified 01/02/24 10:28 Vital Signs Vital Signs - 24 hr 11/11/24 17:33 11/12/24 02:25 11/12/24 03:59 Temperature 98.9 F 98.0 F 98.2 F Pulse Rate 108 H 86 85 Respiratory Rate 20 14 18 Blood Pressure 170/82 H 131/78 128/78 Pulse Oximetry 100 100 99 Oxygen Delivery Room Air 11/12/24 06:00 Temperature 98.7 F Pulse Rate 77 Respiratory Rate 18 Blood Pressure 121/65 Pulse Oximetry 98 Oxygen Delivery Exam Narrative: General: NAD, obese Eyes: EOMI ENT: neck supple Cardiovascular: Regular rate and rhythm Respiratory: Clear to auscultation, respirations even and unlabored on RA Gastrointestinal: Soft, non tender Genitourinary: no suprapubic tenderness Musculoskeletal: left lower lateral leg with patch of superficial erythema, mild tenderness. LLE with 2+ pitting edema. No purulence. Skin: warm, dry Neuro: Alert. Psych: Mood appropriate H&P: Results Labs Labs: Short CBC 11/11/24 11/12/24 Range/Units 20:46 04:53 WBC 7.7 5.6 (4.5-10.0) K/mm3 Hgb 13.0 L 12.5 L (14.0-18.0) g/dL Hct 38.0 L 38.2 L (42.0-52.0) % Plt Count 238 221 (150-375) k/mm3 [facility] 11/11/24 11/12/24 20:46 04:53 Sodium 137 137 Potassium 4.3 3.9 Chloride 103 102 Carbon Dioxide 23 25 BUN 13 13 Creatinine 0.87 0.87 Glucose 100 85 Calcium 9.1 9.0 Liver Function 11/11/24 Range/Units 20:46 Total Bilirubin 0.6 (0.2-1.3) mg/dL AST 26 (17-59) U/L ALT 27 (6-50) U/L Alkaline Phosphatase 89 (38-126) U/L Albumin 4.4 (3.5-5.1) g/dL Assessment and Plan Assessment and plan (1) Cellulitis: Qualifiers: Laterality: left Site of cellulitis: extremity Site of cellulitis of extremity: lower extremity Qualified Code(s): L03.116 - Cellulitis of left lower limb Code(s): L03.90 - Cellulitis, unspecified Status: Acute Assessment and Plan: - Patient was admitted 10/2024 with similar complaints, discharged on Bactrim. Symptoms initially improved and then worsened again. His PCP started him on clindamycin with no improvement so he was instructed to come to the ER. - Lower extremity CT with skin thickening, interval nonspecific subcutaneous edema throughout the left calf. No abscess or venous thrombosis. - afebrile, HDS. WBC 5.6, ESR 79, CRP 1.5 - received cefepime and vanc in the ED. Continue vancomycin for now. - follow-up blood cultures obtained in the ED. Trend inflammatory markers. Plan DVT prophylaxis Lovenox Code status: full code confirmed on admission Disposition: discharge home in 1-2 days pending improvement Quality VTE Prophylaxis VTE prophylaxis: pharmacologic ordered
--- NOTE | 2024-11-12 11:15 | P.CONGS_ITS ---
Assessment and Plan Assessment and plan (1) Cellulitis: Qualifiers: Laterality: left Site of cellulitis: extremity Site of cellulitis of extremity: lower extremity Qualified Code(s): L03.116 - Cellulitis of left lower limb Code(s): L03.90 - Cellulitis, unspecified Status: Acute Assessment and Plan: Patient presented to the ER yesterday with increasing concern for left lower leg cellulitis. He had recently been hospitalized for 6 days and treated with IV vancomycin, then switched to Bactrim. He was sent home on a course of Bactrim and then switched antibiotics per his PCP's recommendations. He did not notice much improvement to the leg and again presented to his PCP yesterday. They recommended he present to the ED as a thought that the leg may need surgical debridement. Upon admission, patient's labs are benign with a normal white blood cell count. Vital signs stable. CT demonstrated skin thickening and interval improvement nonspecific subcutaneous edema throughout the left calf. Wound care team evaluated and was able to slough off skin and reveal pink healthy tissue. Suggested silver gel to the area. Upon exam, wound appears to be very superficial with 100% red beefy tissue and no signs of infection or necrosis. Cellulitis present circumferentially to calf. Edema to left lower extremity. No surgical intervention necessary. Continue IV antibiotics for cellulitis. Continue daily wound care with daily cleansing of the leg with soap and water. Apply thin layer of silver gel and then cover with vaseline gauze, ABD pad, and then Kerlix dressing. General surgery team will sign off at this time. Plan Discussed patient's case and plan of care with Dr. Diaz. History of Present Illness Consult details Consult date: 11/12/24 Reason for consult: other (Cellulitis) Requesting physician: Adalgisa Earl PA-C Narrative: Patient is a 44 year old man with obesity who we have been asked to see in surgical consultation for cellulitis. Patient was previously hospitalized for the same issue from 10/28/24-11/02/24. He was treated with vancomycin and then switched to Bactrim. He was sent home with 5 day course of the Bactrim. Patient states that the wound at the time had blisters that up since dried up and adhere to the skin. He saw his PCP and was started on a different antibiotic. Did not notice much improvement with this antibiotic so he again presented to his PCP yesterday who suggested he present to the ED due to concern for the patient needing surgical debridement. Upon admission to the ED, patient's lab work revealed a normal WBC count. All othe labs benign. A lower extremity CT demonstrated skin thickening and interval improvement in nonspecific subcutaneous edema throughout the left calf which could be due to cellulitis or venous insufficiency. No abscess or venous thrombosis. General surgery consulted at this time. Wound care nurse evaluated patient this morning, cleansed the wound and was able to slough off dried large patches of flaking blister skin. This revealed healthy red viable tissue with no signs of infection. No purulent draiange expressed and no areas of fluctuance. Wound care team started patient on daily wound care with silver gel. Patient denies history of diabetes. 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 [facility] Social History Social History (Updated 10/29/24 @ 15:44 by Marva Garcia PA-C) Social History: Lives at home with and her cousin. Has 3 cats. Smoking status: Never smoker Second hand tobacco smoke exposure: Yes Alcohol intake: current Drinks per week: 1 Substance use: never Lack of Transportation: No Lack of Food: Never True Current Housing: I Have Housing Concerned About Future Housing: No Difficulty Paying Gas/Electric Bills: No Difficulty Paying for Meds: No Currently Unemployed: No Education: High School Diploma/GED Difficulty w/ Childcare or Family Care: No Spiritual care concerns: No Meds Home Medications and Allergies Home Medications ?Medication ?Instructions ?Recorded ?Confirmed ?Type clindamycin HCl 300 mg capsule 300 mg PO Q6H 11/12/24 11/12/24 History Allergies Allergy/AdvReac Type Severity Reaction Status Date / Time No Known Allergies Allergy Unverified 01/02/24 10:28 Vital Signs Vital Signs - 24 hr 11/11/24 17:33 11/12/24 02:25 11/12/24 03:59 Temperature 98.9 F 98.0 F 98.2 F Pulse Rate 108 H 86 85 Respiratory Rate 20 14 18 Blood Pressure 170/82 H 131/78 128/78 Pulse Oximetry 100 100 99 Oxygen Delivery Room Air 11/12/24 06:00 11/12/24 09:00 Temperature 98.7 F Pulse Rate 77 Respiratory Rate 18 Blood Pressure 121/65 Pulse Oximetry 98 Oxygen Delivery Room Air Exam 2 Const: General: comfortable and no acute distress Eyes: General: appearance normal, both eyes and all related structures Neck: Neck: supple Resp: Effort & Inspection: normal respiratory effort Cardio: Rate: regular rate Skin: General skin exam: normal color and no rashes or lesions noted Extrem: Other: left lower leg with significant edema extending down into foot. Area to anterolateral leg with superficial wound with 100% red healthy granulation tissue. No signs of necrosis or infection. Erythema present circumferentially around calf. Distal pulses palpable. Full range of motion intact to lower extremity joints. Results Labs 11/12/24 04:53 11/12/24 04:53 Labs: Abnormal lab results 11/11/24 11/12/24 Range/Units 20:46 04:53 RBC 4.32 L 4.17 L (4.6-6.20) M/mm3 Hgb 13.0 L 12.5 L (14.0-18.0) g/dL Hct 38.0 L 38.2 L (42.0-52.0) % MPV 11.1 H 11.2 H (7.4-10.4) fl ESR 79 H (0-20) mm/hr C-Reactive Protein 1.8 H (<1.0) mg/dL Total Protein 8.4 H (6.3-8.2) g/dL Diabetes panel 11/11/24 11/12/24 Range/Units 20:46 04:53 Sodium 137 137 (137-145) mmol/L Potassium 4.3 3.9 (3.4-5.0) mmol/L Chloride 103 102 (98-107) mmol/L Carbon Dioxide 23 25 (22-30) mmol/L BUN 13 13 (9-20) mg/dL Creatinine 0.87 0.87 (0.7-1.3) mg/dL Glucose 100 85 (65-110) mg/dL Hemoglobin A1c 4.7 (<5.7) % Calcium 9.1 9.0 (8.4-10.2) mg/dL AST 26 (17-59) U/L ALT 27 (6-50) U/L Alkaline Phosphatase 89 (38-126) U/L Total Protein 8.4 H (6.3-8.2) g/dL Albumin 4.4 (3.5-5.1) g/dL Calcium panel 11/11/24 11/12/24 Range/Units 20:46 04:53 Calcium 9.1 9.0 (8.4-10.2) mg/dL Albumin 4.4 (3.5-5.1) g/dL Pituitary panel 11/11/24 11/12/24 Range/Units 20:46 04:53 Sodium 137 137 (137-145) mmol/L Potassium 4.3 3.9 (3.4-5.0) mmol/L Chloride 103 102 (98-107) mmol/L Carbon Dioxide 23 25 (22-30) mmol/L BUN 13 13 (9-20) mg/dL Creatinine 0.87 0.87 (0.7-1.3) mg/dL Glucose 100 85 (65-110) mg/dL Calcium 9.1 9.0 (8.4-10.2) mg/dL Adrenal panel 11/11/24 11/12/24 Range/Units 20:46 04:53 Sodium 137 137 (137-145) mmol/L Potassium 4.3 3.9 (3.4-5.0) mmol/L Chloride 103 102 (98-107) mmol/L Carbon Dioxide 23 25 (22-30) mmol/L BUN 13 13 (9-20) mg/dL Creatinine 0.87 0.87 (0.7-1.3) mg/dL Glucose 100 85 (65-110) mg/dL Calcium 9.1 9.0 (8.4-10.2) mg/dL Total Bilirubin 0.6 (0.2-1.3) mg/dL AST 26 (17-59) U/L ALT 27 (6-50) U/L Alkaline Phosphatase 89 (38-126) U/L Total Protein 8.4 H (6.3-8.2) g/dL Albumin 4.4 (3.5-5.1) g/dL All other labs normal.
[2024-11-12] MEDS: ENOXAPARIN 40 MG/0.4 ML SYRINGE SUB-Q (12:26)
[2024-11-12 14:00] VITALS: BP 132/67; PULSE 88; RESP 16; TEMP 36.9; O2SAT 99
[2024-11-12] MEDS: VANCOMYCIN 1,500 MG/NS 500 ML 1,500 MG/500 ML BAG 250 MG IVPB (14:37)
[2024-11-12 22:00] VITALS: BP 128/71; PULSE 76; RESP 18; TEMP 36.2; O2SAT 100
[2024-11-13] MEDS: VANCOMYCIN 1,500 MG/NS 500 ML 1,500 MG/500 ML BAG 250 MG IVPB (05:05)
[2024-11-13 05:20] LABS: Hematocrit 36.3 % (42.0-52.0); Hemoglobin 12.0 g/dL (14.0-18.0); Immature Granulocyte Percent A 0.4 % (0-0.5); Lymphocytes Absolute Auto 1.41 K/mm3 (0.9-3.2); Mean Corpuscular HGB Conc 33.1 g/dl (32-36); Mean Corpuscular Hemoglobin 30.5 pg (26-34); Mean Corpuscular Volume 92.1 fl (80-100); Nucleated Red Blood Cells Absolute Auto 0.000 K/mm3 (0.0-0.012); Nucleated Red Blood Cells Perc 0.0 % (0.0-0.2); Platelet Count Result 212 k/mm3 (150-375); Red Blood Count 3.94 M/mm3 (4.6-6.20); White Blood Count 4.8 K/mm3 (4.5-10.0)
[2024-11-13 05:35] LABS: Alanine Aminotransferase 21 U/L (6-50); Albumin Level 3.7 g/dL (3.5-5.1); Alkaline Phosphatase 65 U/L (38-126); Anion Gap 7 mmol/L (4-12); Aspartate Amino Transferase 24 U/L (17-59); Bilirubin,Total 0.7 mg/dL (0.2-1.3); Blood Urea Nitrogen 12 mg/dL (9-20); CRP 2.3 mg/dL (<1.0); Calcium 8.7 mg/dL (8.4-10.2); Carbon Dioxide 26 mmol/L (22-30); Chloride 104 mmol/L (98-107); Estimated CRCL calculation 122 ml/min; Estimated Glomerular Filt Rate > 60; Glucose 85 mg/dL (65-110); Potassium 4.2 mmol/L (3.4-5.0); Sodium 137 mmol/L (137-145); Total Protein 7.2 g/dL (6.3-8.2)
[2024-11-13 06:00] VITALS: BP 110/54; PULSE 73; RESP 18; TEMP 36.7; O2SAT 98
[2024-11-13 06:29] VITALS: BP 110/54; PULSE 73; RESP 18; TEMP 36.7; O2SAT 98
--- NOTE | 2024-11-13 07:35 | P.PNIM_ITS ---
Progress Note: A&P Assessment and Plan (1) Cellulitis: Qualifiers: Laterality: left Site of cellulitis: extremity Site of cellulitis of extremity: lower extremity Qualified Code(s): L03.116 - Cellulitis of left lower limb Code(s): L03.90 - Cellulitis, unspecified Status: Acute Assessment and Plan: - Patient was admitted 10/2024 with similar complaints, discharged on Bactrim. Symptoms initially improved and then worsened again. His PCP started him on clindamycin with no improvement so he was instructed to come to the ER. - Lower extremity CT with skin thickening, interval nonspecific subcutaneous edema throughout the left calf. No abscess or venous thrombosis. - afebrile, HDS. WBC 5.6, ESR 79, CRP 1.5 - received cefepime and vanc in the ED. Continue vancomycin for now. - blood cultures still pending - inflammatory markers slightly up trending today - erythema and swelling overall improving since yesterday Plan DVT prophylaxis Lovenox Code status: full code confirmed on admission Disposition: discharge home in 1-2 days pending improvement Subjective Date/time seen: 11/13/24 07:35 Interval history: Patient is a 44 yo male with no significant past medical history who presented to the emergency department with complaints of left lower extremity with c oncerns for left lower extremity infection. Patient was admitted 10/2024 with similar complaints, discharged on Bactrim. Symptoms initially improved and then worsened again. 11/13/2024 Patient sitting comfortably in the examination. Endorses improving left lower extremity pain and swelling. Blood culture still pending. Patient overall continues to improve, to discharge within next 24-48 hours pending culture results. Review of Systems Review of Systems: All systems reviewed & are unremarkable except as noted in HPI and below Exam Narrative: General: NAD, obese Eyes: EOMI ENT: neck supple Cardiovascular: Regular rate and rhythm Respiratory: Clear to auscultation, respirations even and unlabored on RA Gastrointestinal: Soft, non tender Genitourinary: no suprapubic tenderness Musculoskeletal: left lower lateral leg with patch of superficial erythema, mild tenderness. LLE with 2+ pitting edema. No purulence. Skin: warm, dry Neuro: Alert. Psych: Mood appropriate Objective Data Vital Signs Vital Signs: Vital Signs - 24 hr 11/12/24 09:00 11/12/24 14:00 11/12/24 20:00 Temperature 98.4 F Pulse Rate 88 Respiratory Rate 16 Blood Pressure 132/67 Pulse Oximetry 99 Oxygen Delivery Room Air Room Air 11/12/24 22:00 11/13/24 06:00 11/13/24 06:29 Temperature 97.2 F L 98.0 F 98.0 F Pulse Rate 76 73 73 Respiratory Rate 18 18 18 Blood Pressure 128/71 110/54 L 110/54 L Pulse Oximetry 100 98 98 Oxygen Delivery Intake/Output Intake/Output: Intake & Output 11/10/24 11/11/24 11/12/24 11/13/24 23:59 23:59 23:59 23:59 Intake Total 1700 Balance 1700 Meds/Results Medications: Active Medications Generic Name Dose Route Start Last Admin Trade Name Freq PRN Reason Stop Dose Admin Enoxaparin Sodium 40 mg 11/12/24 12:00 11/12/24 12:26 Enoxaparin 40 Mg/0.4 Ml Syringe SUB-Q 40 mg DAILY DEQUAN Administration Vancomycin HCl 1,500 mg in 500 mls @ 250 mls/hr 11/12/24 15:00 11/13/24 05:05 Vancomycin 1,500 Mg/Ns 500 Ml IVPB 250 mls/hr Q12H DEQUAN Administration Radiology Results: ITS Impressions Lower Extremity CT 11/11/24 22:42 IMPRESSION: 1. Skin thickening and interval improvement in nonspecific subcutaneous edema throughout the left calf which could be due to cellulitis or venous insufficiency. No abscess or venous thrombosis. Labs Labs: Laboratory Results - last 24 hr 11/13/24 04:37 WBC 4.8 RBC 3.94 L Hgb 12.0 L Hct 36.3 L MCV 92.1 MCH 30.5 MCHC 33.1 RDW 12.9 Plt Count 212 MPV 11.2 H Immature Gran % (Auto) 0.4 Neut % (Auto) 60.4 Lymph % (Auto) 29.7 [place] % (Auto) 6.5 Eos % (Auto) 1.5 Baso % (Auto) 1.5 H Lymph # (Auto) 1.41 [place] # (Auto) 0.3 Eos # (Auto) 0.1 Baso # (Auto) 0.1 Abs Immat Gran (auto) 0.02 Absolute Neuts (auto) 2.9 Absolute Nucleated RBC 0.000 Nucleated RBC % 0.0 ESR 115 H Sodium 137 Potassium 4.2 Chloride 104 Carbon Dioxide 26 Anion Gap 7 BUN 12 Creatinine 0.86 Estim Creat Clear Calc 122 Estimated GFR > 60 Glucose 85 Calcium 8.7 Total Bilirubin 0.7 AST 24 ALT 21 Alkaline Phosphatase 65 C-Reactive Protein 2.3 H Total Protein 7.2 Albumin 3.7 Quality VTE Prophylaxis VTE prophylaxis: pharmacologic ordered
[2024-11-13] MEDS: ENOXAPARIN 40 MG/0.4 ML SYRINGE SUB-Q (08:07)
[2024-11-13 14:00] VITALS: BP 130/64; PULSE 81; RESP 18; TEMP 36.6; O2SAT 100
[2024-11-13] MEDS: VANCOMYCIN 1,750 MG/NS 500 ML 1,750 MG/500 ML BAG 250 MG IVPB (15:15)
[2024-11-13 22:00] VITALS: BP 142/84; PULSE 90; RESP 18; TEMP 36.6; O2SAT 98
[2024-11-14] MEDS: VANCOMYCIN 1,750 MG/NS 500 ML 1,750 MG/500 ML BAG 250 MG IVPB (02:43)
[2024-11-14 04:30] LABS: Hematocrit 34.3 % (42.0-52.0); Hemoglobin 11.4 g/dL (14.0-18.0); Immature Granulocyte Percent A 0.2 % (0-0.5); Lymphocytes Absolute Auto 1.44 K/mm3 (0.9-3.2); Mean Corpuscular HGB Conc 33.2 g/dl (32-36); Mean Corpuscular Hemoglobin 30.8 pg (26-34); Mean Corpuscular Volume 92.7 fl (80-100); Nucleated Red Blood Cells Absolute Auto 0.000 K/mm3 (0.0-0.012); Nucleated Red Blood Cells Perc 0.0 % (0.0-0.2); Platelet Count Result 196 k/mm3 (150-375); Red Blood Count 3.70 M/mm3 (4.6-6.20); White Blood Count 4.2 K/mm3 (4.5-10.0)
[2024-11-14 04:48] LABS: Alanine Aminotransferase 18 U/L (6-50); Albumin Level 3.6 g/dL (3.5-5.1); Alkaline Phosphatase 64 U/L (38-126); Anion Gap 8 mmol/L (4-12); Aspartate Amino Transferase 22 U/L (17-59); Bilirubin,Total 0.4 mg/dL (0.2-1.3); Blood Urea Nitrogen 9 mg/dL (9-20); CRP 2.1 mg/dL (<1.0); Calcium 8.5 mg/dL (8.4-10.2); Carbon Dioxide 24 mmol/L (22-30); Chloride 105 mmol/L (98-107); Estimated CRCL calculation 120 ml/min; Estimated Glomerular Filt Rate > 60; Glucose 89 mg/dL (65-110); Potassium 4.1 mmol/L (3.4-5.0); Sodium 137 mmol/L (137-145); Total Protein 6.8 g/dL (6.3-8.2)
[2024-11-14 06:00] VITALS: BP 136/70; PULSE 77; RESP 18; TEMP 36.8; O2SAT 99
[2024-11-14 06:26] VITALS: BP 136/70; PULSE 77; RESP 18; TEMP 36.8; O2SAT 99
[2024-11-14 09:37] VITALS: PULSE 77; RESP 18; O2SAT 99
[2024-11-14] MEDS: ENOXAPARIN 40 MG/0.4 ML SYRINGE SUB-Q (09:37)
[2024-11-14] MEDS: LINEZOLID 600 MG TABLET PO (12:07)
--- NOTE | 2024-11-14 12:11 | P.DS_ITS ---
DS: Admitting Diagnosis Discharge Date 11/14/2024 Admitting Diagnosis Cellulitis DS: Discharge Diagnosis Discharge Diagnosis (1) Cellulitis: Qualifiers: Laterality: left Site of cellulitis: extremity Site of cellulitis of extremity: lower extremity Qualified Code(s): L03.116 - Cellulitis of left lower limb Code(s): L03.90 - Cellulitis, unspecified Status: Acute Assessment and Plan: - Patient was admitted 10/2024 with similar complaints, discharged on Bactrim. Symptoms initially improved and then worsened again. His PCP started him on clindamycin with no improvement so he was instructed to come to the ER. - Lower extremity CT with skin thickening, interval nonspecific subcutaneous edema throughout the left calf. No abscess or venous thrombosis. - afebrile, HDS. WBC 5.6, ESR 79, CRP 1.5 - received cefepime and vanc in the ED. Continue vancomycin for now. - blood cultures still pending - inflammatory markers slightly up trending today - erythema and swelling overall improving since yesterday Plan DVT prophylaxis Lovenox Code status: full code confirmed on admission Disposition: discharge home in 1-2 days pending improvement DS: Summary Hospital Course Reason for hospitalization: Lower left leg infection Hospital Course: Patient is a 44 yo male with no significant past medical history who presented to the emergency department with complaints of left lower extremity with concerns for left lower extremity infection. Patient was admitted 10/2024 with similar complaints, discharged on Bactrim. Symptoms initially improved and then worsened again. His PCP started him on clindamycin with no improvement so he was instructed to come to the ER. He reports continued erythema, edema and pain. Denies significant drainage. Denies fevers, chills, chest pain, shortness for breath, nausea, vomiting, loss of sensation. Patient is able to ambulate without assistance. In ED, WBC 5.6, ESR 79, CRP 1.5. Lower extremity CT with skin thickening, interval nonspecific subcutaneous edema throughout the left calf. No abscess or venous thrombosis. Patient was started on cefepime and vancomycin. Patient admitted for general surgery consultation. General surgery consulted regarding cellulitis of the lower extremity in for possible surgical debridement. Wound Care was also consulted was able to slough off skin and it revealed healthy tissue. Wound appears very superficial to general surgery and agree that no surgical intervention is indicated at this time and would recommend continuing IV antibiotics for cellulitis. Spoke with ID pharmacist regarding possible discharge antibiotic coverage. Recommend 10 additional doses of linezolid. Patient otherwise hemodynamically stable for discharge at this time. Remains afebrile without leukocytosis. The patient can be safely discharged at this time. Status at Discharge Functional status at discharge: independent ambulation Overall status at discharge: patient is back to baseline Time Spent with Patient Time attestation: Total time spent providing and/or coordinating discharge services: 35 Exam Narrative: General: NAD, obese Eyes: EOMI ENT: neck supple Cardiovascular: Regular rate and rhythm Respiratory: Clear to auscultation, respirations even and unlabored on RA Gastrointestinal: Soft, non tender Genitourinary: no suprapubic tenderness Musculoskeletal: left lower lateral leg with patch of superficial erythema that surrounds the calf, mild tenderness. LLE with 2+ pitting edema. No purulence. Distal pulses palpable Skin: warm, dry Neuro: Alert. Psych: Mood appropriate DS: Data Data Completed and Pending Labs on day of discharge: Labs from last 24 hours 11/14/24 11/13/24 03:59 13:46 WBC 4.2 L RBC 3.70 L Hgb 11.4 L Hct 34.3 L MCV 92.7 MCH 30.8 MCHC 33.2 RDW 13.1 Plt Count 196 MPV 11.2 H Immature Gran % (Auto) 0.2 Neut % (Auto) 54.9 Lymph % (Auto) 34.0 [place] % (Auto) 7.1 Eos % (Auto) 2.1 Baso % (Auto) 1.7 H Lymph # (Auto) 1.44 [place] # (Auto) 0.3 Eos # (Auto) 0.1 Baso # (Auto) 0.1 Abs Immat Gran (auto) 0.01 Absolute Neuts (auto) 2.3 Absolute Nucleated RBC 0.000 Nucleated RBC % 0.0 ESR 72 H Sodium 137 Potassium 4.1 Chloride 105 Carbon Dioxide 24 Anion Gap 8 BUN 9 Creatinine 0.87 Estim Creat Clear Calc 120 Estimated GFR > 60 Glucose 89 Calcium 8.5 Total Bilirubin 0.4 AST 22 ALT 18 Alkaline Phosphatase 64 C-Reactive Protein 2.1 H Total Protein 6.8 Albumin 3.6 Vancomycin Trough 14.0 Preliminary micro results at discharge 11/11/24 23:54 Blood Culture - Preliminary Blood 11/11/24 23:54 Blood Culture - Preliminary Blood Discharge Plan Discharge Attending physician on discharge: Nikos Abdul Oca Consulting providers: Laly Pedraza; Lambert Dennis Discharging Clinician: Lambert Dennis Anticipated Discharge Date/Time: 11/14/24 12:02 Patient Disposition: Home Activity: no straining Diet: regular Discharge Instructions: Discharge disposition: Home Take medications as prescribed. You will be prescribed linezolid for 9 additional doses (end date 11/18) Monitor blood pressures Take caution while standing, rising, or moving Change positions slowly taking a break between each position change If you standing feel dizzy sit back down and take a break Encouraged to continue with yearly vaccinations Return to the emergency department if you develops sudden shortness of breath, chest pain, nausea, vomiting, upset stomach or intractable diarrhea Return to the emergency department if you develop fever greater than 101.5 Follow-up with the primary care physician within 1-2 weeks Thank you for choosing [facility] for your healthcare needs Patient Instructions: Antibiotic Form, Acute Wounds (GEN) Patient Language: Azeri Stand Alone Forms: General Discharge Information Follow-up/Referrals: Kameron,Lala Gordon, BUSINESS CONTROL MANAGER [Primary Care Provider, Unknown] Discharge Medications: New linezolid 600 mg Tablet 600 mg PO Q12HR Qty: 9 0RF Discontinued clindamycin HCl 300 mg capsule 300 mg PO Q6H Date of admission: 11/13/24 09:18 Primary Care Provider: Kameron,Lala Gordon Admitting Provider: Beth Rene Attending physician on admission: Beth Rene Condition: Stable Quality VTE Prophylaxis VTE prophylaxis: pharmacologic ordered
== END 2024-11-14 14:00 | disposition home or self-care (01) | DRG 383 ==
LOC: ANHED 11-12 03:06 → ANH2MED 11-12 03:17
PROVIDERS: Nurse Practitioner Family; Physician Assistant; Admitting Provider General Practice; Emergency Provider Physician Assistant; PCP Nurse Practitioner Family; Visit Provider Physician Assistant
DX: L03.116 Cellulitis of left lower limb (principal)
CPT/HCPCS: 36415; 73701; 80048; 80053; 80202; 83036; 83735; 85025; 85652; 86140; 87040; 96365; 99212; 99285; A9270; G0463; J0692; J1650; J3373; Q9967